=== PATIENT | male | born 1950 | race Caucasian/White ===

== ENCOUNTER 2018-04-23 12:18 | Inpatient (IN) | payer MEDICARE ==
[2018-04-23] MEDS ORDERED: Adenosine 6 MG/2 ML VIAL ONE (12:24)
[2018-04-23] MEDS ORDERED: Metoprolol Tartrate 5 MG/5 ML VIAL ONE (12:58)
[2018-04-23 13:05] LABS: PTT 31.5 SEC (22.9-36.1); Prothrombin Time 13.5 SEC (12.0-14.7)
[2018-04-23 13:06] LABS: ALT (SGPT) 10 U/L (8-55); AST (SGOT) 15 U/L (5-34); Albumin 4.6 g/dL (3.4-4.8); Alkaline Phosphatase 95 U/L (40-150); Anion Gap 16 mmol/L (10-20); BUN (Urea Nitrogen) 12 mg/dL (8.4-25.7); Bilirubin, Total 1.8 mg/dL (0.2-1.2); CK (CPK) 61 U/L (30-200); Calc. Creatinine Clearance 0 mL/min (70-130); Calcium 10.3 mg/dL (7.8-10.44); Carbon Dioxide 27 mmol/L (23-31); Chloride 95 mmol/L (98-107); D-Dimer Test 3.76 *mcg/mL (0.27-0.43); Estimated GFR-MDRD Greater than 90; Globulin 4.1 g/dL (2.4-3.5); Glucose 113 mg/dL (80-115); Magnesium 1.9 mg/dL (1.6-2.6); Potassium 3.7 mmol/L (3.5-5.1); Protein, Total 8.7 g/dL (5.8-8.1); Sodium 134 mmol/L (136-145)
[2018-04-23 13:10] LABS: #Eosinphils 0.1 thou/uL (0.0-0.7); #Lymphocytes 1.3 thou/uL (1.20-3.40); #Neutrophils 7.6 thou/uL (1.40-6.50); %Basophils 0.3 % (0.0-1.0); %Lymphocytes 13.3 % (21.0-51.0); %Monocytes 9.8 % (0.0-10.0); %Neutrophils 75.6 % (42.0-75.0); Hemoglobin 15.3 g/dL (14.0-18.0); Mean Corpuscular HGB CONC 33.9 g/dL (32.0-36.0); Mean Corpuscular Hemoglobin 37.7 pg (27.0-31.0); Platelet Count 182 thou/uL (130-400); RBC Distribution Width 13.7 % (11.5-14.5); Red Blood Cell (RBC) Count 4.05 mill/uL (4.70-6.10)
[2018-04-23] MEDS ORDERED: Calcium Gluc 4.6 MEQ/10 ML (100 MG/ML) ONE (13:50)
--- NOTE | 2018-04-23 13:55 | RAD ---
CHEST 1 VIEW: Date: 04/23/18 HISTORY: Fall at home. Patient was in supraventricular tachycardia per EMS. FINDINGS: Heart size within normal limits for portable technique. There are atherosclerotic changes of the aort a. The lungs are clear of infiltrates. There are no signs of failure. No fracture is identified. IMPRESSION: No acute changes. POS: [facility]
--- NOTE | 2018-04-23 14:15 | RAD ---
AP PELVIS: Date: 04/23/18 HISTORY: Fall at home with left hip pain. FINDINGS: Bones appear demineralized. The pelvic ring is intact. There is a left femoral neck fracture which ap pears to be more of a subcapital fracture. IMPRESSION: Left femoral neck fracture. POS: [facility]
--- NOTE | 2018-04-23 14:15 | RAD ---
LEFT KNEE 2 VIEWS: Date: 04/23/18 HISTORY: Patient fell at home with knee pain. FINDINGS: Bones are demineralized. There are no signs of fracture, dislocation, or joint effusion. IMPRESSION: Negative left knee. POS: [facility]
--- NOTE | 2018-04-23 14:17 | RAD ---
LEFT HIP 2 VIEWS: Date: 04/23/18 HISTORY: Fall at home with hip pain. FINDINGS: There is a left femoral neck fracture. It appears to be more of a subcapital fracture. The bones are demineralized. There are vascular calcifications seen. IMPRESSION: Left femoral neck fracture. POS: [facility]
--- NOTE | 2018-04-23 14:17 | RAD ---
LEFT FEMUR 2 VIEWS: Date: 04/23/18 HISTORY: Fall at home with hip pain. FINDINGS: The bones are demineralized. There is a subcapital fracture of the left femoral neck. There are vascu lar calcifications noted. IMPRESSION: Left femoral neck fracture. POS: [facility]
--- NOTE | 2018-04-23 14:25 | CT ---
CT ANGIO CHEST PERFORMED WITH IV CONTRAST ENHANCEMENT WITH 3D RECONSTRUCTIONS: Date: 04/23/18 HISTORY: Syncope. FINDINGS: There is mild right side pleural effusion with a larger left effusion. There are bibasilar atelectati c lung changes seen. No evidence for any interstitial edema. The thoracic aorta is normal in caliber. There is good pulmonary artery opacification. There is no CT evidence for pulmonary embolus. Visualized liver parenchyma shows no focal findings. Partial visualized hypodensity in the right kidn ey is most likely a cyst. IMPRESSION: 1. No CT evidence for pulmonary embolus. 2. Moderate bilateral pleural effusions, left larger than right, with associated atelectatic changes in the bases. POS: [facility]
[2018-04-23] MEDS ORDERED: Digoxin 0.5 MG/2 ML AMP ONE (14:26)
[2018-04-23 16:03] LABS: Troponin I 0.016 ng/mL (< 0.028)
[2018-04-23] MEDS ORDERED: ISOVUE-370 76%-LOCM 1 ML ONE (16:53)
--- NOTE | 2018-04-23 16:57 | CON ---
DATE OF CONSULTATION: REASON FOR CONSULTATION: Atrial flutter. HISTORY: Mr. Hawkins is a 68-year-old gentleman, who has not been seen around by Cardiology in the past. He recently presented with a fall. He states he tripped over his dog. He broke his left hip. He presented to the emergency room with severe left hip pain. He was found to be in atrial flutter. No previous history of underlying coronary artery disease. He denies chest pain, pressure, syncope, or presyncope. PAST MEDICAL HISTORY: Previous hand surgery. SOCIAL HISTORY: Continues to drink alcohol and tobacco. ALLERGIES: NONE. HOME MEDICATIONS: None. REVIEW OF SYSTEMS: A 10-point review of systems is reviewed and as above, otherwise negative. PHYSICAL EXAMINATION: GENERAL: He does appear disheveled. VITAL SIGNS: Blood pressure 131/70, pulse 150, respirations 20. NEUROLOGIC: The patient is alert and oriented x3 with no focal neurologic deficits. HEENT: Sclerae without icterus. Mouth has moist mucous membranes with normal pallor. NECK: No JVD. Carotid upstroke brisk. No bruits bilaterally. LUNGS: Clear to auscultation with unlabored respirations. BACK: No scoliosis or kyphosis. CARDIAC: Irregularly irregular. ABDOMEN: Soft, nontender, nondistended. No peritoneal signs present. No hepatosplenomegaly. No abnormal striae. EXTREMITIES: 2+ femoral and 2+ dorsalis pedis pulses. No cyanosis, clubbing, or edema. SKIN: No gross abnormalities. PERTINENT LABORATORY DATA: Hemoglobin 15.3, hematocrit 45, platelet count of 182. Creatinine 0.68. BNP of 484. IMPRESSION: 1. Atrial flutter. 2. Recent hip fracture. RECOMMENDATIONS: From a CV standpoint, we will try and rate control Mr. Hawkins. We will give additional digoxin. He is currently on 7.5 mg of IV Cardizem per hour. May need to increase his Cardizem. Ultimately, he may require ablation and/or cardioversion. We will consult with EP. We will keep him n.p.o. after midnight. Job ID: [id number]
[2018-04-23] MEDS: Sodium Chloride 0.9% 1,000 ML IV SCH (17:29)
[2018-04-23] MEDS: Lorazepam 1 MG TAB PO SCH (18:35)
--- NOTE | 2018-04-23 18:47 | HP ---
HISTORY OF PRESENT ILLNESS: Mr. Hawkins is a 68-year-old man. He came to this facility earlier today with complaint of left hip pain, which started about 3 days ago after he fell. He was evaluated and found to have a subcapital left hip fracture. He is being admitted for management. He was also found to have atrial fibrillation with rapid ventricular response. He denies any associated shortness of breath. Denies dizziness. Denies lightheadedness. PAST MEDICAL HISTORY: Unremarkable except for skin cancer excision. PAST SURGICAL HISTORY: No prior history of major surgery. ALLERGIES: HE DOES NOT HAVE ANY KNOWN ALLERGY. SOCIAL HISTORY: He is an active smoker. He appeared to have a history of alcohol abuse. FAMILY HISTORY: His family history was reviewed and is noncontributory. MEDICATIONS: At home, he was not on any medications. REVIEW OF SYSTEMS: CONSTITUTIONAL: He denies any fevers. He denies any weakness. HEENT: No headache. No ocular pain. No sore throat. No rhinorrhea. No earache. No epistaxis. NECK: No neck pain. No neck stiffness. CARDIOVASCULAR: No shortness of breath. No chest pain. PULMONARY: No coughing. GASTROINTESTINAL: No nausea. No vomiting. No diarrhea. No abdominal pain. GENITOURINARY: No dysuria. No hematuria. HEMATOLOGIC: No abnormal bleeding. No ecchymosis. LYMPHATIC: No palpable lymphadenopathy. No painful lymphadenopathy. SKIN: No rash. No itching. ALLERGY: No hay fever. NEUROLOGIC: No seizure. PSYCHIATRIC: No anxiety. No depression. ENDOCRINOLOGIC: No heat or cold intolerance. No polyuria, polydipsia, or polyphagia. MUSCULOSKELETAL: Some right hip pain. No history of arthritis. PHYSICAL EXAMINATION: GENERAL: At the current time, he is alert, responsive, cooperative, in no acute distress. VITAL SIGNS: His latest vital signs show a pulse rate of 125, blood pressure 109/77, respiratory rate of 14, and he is afebrile. HEENT: His head is normocephalic and atraumatic. Both his pupils are equal and reactive. Ears and nose normal. Oral mucosa is moist. Pharyngeal area is clear. NECK: Supple. There is no distention of the jugular vein. No lymphadenopathy felt. Thyroid gland not palpable. There is no carotid bruit. CHEST: Symmetrical, irregular, S1 and S2. LUNGS: Clear. ABDOMEN: Soft. Bowel sounds heard. We could not appreciate any organomegaly. LIMBS: He has +1 edema of the lower extremities and he has limitation in view of range of motion of the left hip. NEUROLOGIC: Otherwise, he moves all extremities. LABORATORY DATA: His CBC done earlier showed a WBC of 10, hemoglobin of 15.3, hematocrit of 45, MCV of 111, platelet of 182. PT is 13.5, PTT is 31.5. D-dimer was noticed to be elevated at 3.76. CT angiogram is negative for PE. Chemistry and lytes show sodium of 134, potassium 3.7, chloride 95, CO2 of 27, BUN 12, creatinine 0.68, glucose 113, calcium 13.3, magnesium 1.9, total bilirubin 1.8, AST 15, ALT 10, alkaline phosphatase 95. Troponin was 0.023. BNP was elevated at 484. Total protein is 8.7, albumin 4.6. TSH is 2.2415, which is normal. Left femoral x-ray was reported to show a sub left femoral neck fracture. Chest x-ray was reported to show no acute changes. ASSESSMENT: This is a 68-year-old man with no significant past medical history except for skin cancer excision, who was admitted with left hip fracture, which he sustained after he fell. He was also noticed to be in atrial fibrillation with rapid ventricular response. He is currently on Cardizem drip. His pulse rate was still elevated on Cardizem drip earlier and his blood pressure was on the low side. We did give him one dose of digoxin 0.25 IV. Cardiology consult was called. Troponins are in progress, assessed level so far normal. The patient will be admitted to [facility]. Cardiology consult and Orthopedic Surgery consult were called. Further evaluation and management will depend on the course of his hospitalization and his response to therapy. ADDENDUM: I had a long discussion with the patient and his daughter regarding code status at this time. They said that they need more time to make a definite decision. So currently, the patient is full code, full resuscitation. Job ID: [id number]
[2018-04-23 19:02] LABS: Troponin I 0.021 ng/mL (< 0.028)
--- NOTE | 2018-04-23 19:19 | PRG ---
DATE OF SERVICE: HISTORY OF PRESENT ILLNESS: He is an alcoholic man, who fell a few days ago and probably suffered a nondisplaced femoral neck fracture at that time and then is basically laid around the house. Passed out again today and presents via EMS with supraventricular tachycardia as well as a broken hip. Past medical history is difficult fared out. He really does not go the doctor. However, he is an alcoholic. He smokes a pack a day. He does have a daughter, who gives him some support. He does not eat very much according to his own statement. PHYSICAL EXAMINATION: GENERAL: Shows a thin man, who is disheveled appearing. He is alert and oriented. EXTREMITIES: His left hip shortened, externally rotated. I am not able to palpate any pulses distally is pain with rotation of the hip. RADIOGRAPHS: Show a femoral neck and head fracture, which is only mildly displaced. LABORATORY DATA: Labs also important show an increased serum protein. His calcium is borderline high at 10.3 and normal is 10.4. PLAN: So, I am going to do a protein electrophoresis just to make sure there is no metastatic or myeloma type situation in hip. I discussed total hip arthroplasty risks and benefits and he understands and like to proceed with surgery. Job ID: [id number]
[2018-04-23] MEDS ORDERED: Digoxin 0.5 MG/2 ML AMP SLOW IVP SCH (20:45)
[2018-04-24] MEDS: Atorvastatin Calcium 40 MG TAB PO SCH (00:06)
[2018-04-24] MEDS: Morphine 4 MG/ML VIAL SLOW IVP PRN ×2 (01:05→18:08)
[2018-04-24] MEDS: Lorazepam 1 MG TAB PO SCH ×4 (01:06→17:32)
[2018-04-24] MEDS: Diltiazem 125 MG in Sodium Chloride 0.9% 100 ML IVPB SCH ×3 (01:07→21:05)
[2018-04-24] MEDS: Sodium Chloride 0.9% 1,000 ML IV SCH ×3 (02:28→18:02)
[2018-04-24 04:57] LABS: #Eosinphils 0.2 thou/uL (0.0-0.7); #Lymphocytes 1.4 thou/uL (1.20-3.40); #Monocytes 0.9 thou/uL (0.11-0.59); #Neutrophils 6.3 thou/uL (1.40-6.50); %Basophils 0.1 % (0.0-1.0); %Eosinophils 2.1 % (0.0-10.0); %Lymphocytes 15.7 % (21.0-51.0); %Monocytes 10.2 % (0.0-10.0); %Neutrophils 71.8 % (42.0-75.0); Hemoglobin 12.7 g/dL (14.0-18.0); Mean Corpuscular HGB CONC 33.3 g/dL (32.0-36.0); Mean Corpuscular Hemoglobin 37.5 pg (27.0-31.0); Mean Platelet Volume 9.2 fL (7.4-10.4); Platelet Count 161 thou/uL (130-400); RBC Distribution Width 13.9 % (11.5-14.5); Red Blood Cell (RBC) Count 3.39 mill/uL (4.70-6.10); White Blood Cell (WBC) Count 8.8 thou/uL (4.8-10.8)
[2018-04-24 05:08] LABS: Cardiac Risk 3.3 (Less than 4.5)
[2018-04-24] MEDS ORDERED: CEFAZOLIN/Water 2 GM/20 ML SYRINGE SLOW IVP SCH (07:15)
[2018-04-24] MEDS ORDERED: CEFAZOLIN 2 GM in Premix Bag 1 BAG IVPB SCH (07:30)
--- NOTE | 2018-04-24 10:05 | CON ---
DATE OF CONSULTATION: HISTORY OF PRESENT ILLNESS: Ulises Hawkins is a 68-year-old gentleman, who has no primary care physician, is from [place], [place], lives with a daughter, who smokes a pack a day. Has 5 to 6 Michele Islas every day. Has a minimal level of activity, sustained a fall almost 48 hours ago and refused to come to the hospital until yesterday. When he comes in, he was found to have fractured hip. He has been seen by Orthopedic Surgery. He then was found to have SVT, atrial flutter. He has been seen by flow floor attendant, Pulmonary Critical Care seen him while in the MICU. This morning, he is lying in bed. Denies any pain. Denies difficulty breathing. Denies any chest pain. Denies any cough. PAST MEDICAL HISTORY: Pertinent for no diabetes, no hypertension. PAST SURGICAL HISTORY: Right hand surgery. CHRONIC MEDICATION: None. He is on a Cardizem drip. Antibiotic, Ancef. SOCIAL HISTORY: He is a national park ranger one time. REVIEW OF SYSTEMS: Otherwise, ten-point negative. PHYSICAL EXAMINATION: VITAL SIGNS: His sats are 98, pulse is 140, irregular, blood pressure 94/77, respiratory rate 18. CHEST: Decreased breath sounds. No wheezing. CARDIAC: Normal S1, S2. No gallops or masses. LABORATORY DATA: White count 8000, H and H are 12 and 38, platelet count 161. His lytes are normal. His BNP is 484. Thyroid function is normal. Renal function is normal. Left femoral neck fracture seen on his x-ray. He had a CT thorax, chest done. No evidence of PE. There was pleural effusion seen on the CT, which on the chest x-ray was really not that apparent. IMPRESSION: 1. Status post fractured right hip. 2. Supraventricular tachycardia. 3. 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 4. Left pleural effusion not visible much on the chest x-ray, probably secondary to congestive heart failure. 5. Alcohol and tobacco abuse. PLAN: Pulmonary will follow while in the MICU. Input as per Cardiology. Magnesium phos is being ordered. IV magnesium will be given. Consultation note, 70 minutes, 50% direct patient care. Job ID: [id number]
[2018-04-24] MEDS: Famotidine/PF 20 mg/2ml Vial SLOW IVP SCH (10:11)
[2018-04-24 10:59] LABS: Magnesium 1.6 mg/dL (1.6-2.6)
[2018-04-24] MEDS ORDERED: Digoxin 0.5 MG/2 ML AMP SLOW IVP SCH ×4 (11:15→23:59)
--- NOTE | 2018-04-24 11:28 | PDOC.PN ---
- Subjective Encounter Start Date: 04/24/18 Encounter Start Time: 11:30 Subjective: Patient still with uncontrolled heart rate. Shortness of breath ok currentl -: No chest pain at this time. - Objective Resuscitation Status - Order Detail: 04/23/18 18:17 Resuscitation Status Routine Resuscitation Status: DNAR: NO Resuscitation Discussed with: DISCUSSED WITH PATIENT WHO IS ALERT MAR Reviewed: Yes Vital Signs & Weight: Vital Signs (12 hours) Temp BP Pulse Ox 04/24/18 11:06 98.0 F 04/24/18 08:00 94/77 96 04/24/18 07:17 98.2 F 04/24/18 03:31 98.3 F 04/23/18 23:47 99.0 F Weight Weight 143 lb 8.335 oz Most Recent Monitor Data Heart Rate from ECG 159 NIBP 126/88 NIBP BP-Mean 100 Respiration from ECG 23 SpO2 96 I&O: 04/23/18 04/24/18 04/25/18 06:59 06:59 06:59 Intake Total 3182.5 Output Total 1450 Balance 1732.5 Result Diagrams: 04/24/18 04:20 04/23/18 12:25 EKG Reviewed by me: Yes (tele monitor with sawtooth baseline, variable block, 150bpm currently) Phys Exam - Physical Examination Constitutional: NAD HEENT: moist MMs Respiratory: no wheezing, no rales, no rhonchi very tachycardic, a little irregular Dx/Plan (1) Sustained SVT Code(s): I47.1 - SUPRAVENTRICULAR TACHYCARDIA Status: Acute Comment: EP consult, plan for cardioversion (2) Hip fracture, right Code(s): S72.001A - FRACTURE OF UNSP PART OF NECK OF RIGHT FEMUR, INIT Status : Acute Comment: Dr. Parmar consulted (3) CHF (congestive heart failure) Code(s): I50.9 - HEART FAILURE, UNSPECIFIED Status: Acute Qualifiers: Heart failure type: unspecified Comment: ECHO pending, left pleural effusion, elevated BNP, at risk for alcohol cardiomyopathy - Plan cont current plan of care, DVT proph w/SCDs * . - Discharge Day Encounter end time: 11:40
[2018-04-24] MEDS ORDERED: Metoprolol Tartrate 5 MG/5 ML VIAL IVP SCH (21:00)
[2018-04-25] MEDS: Morphine 4 MG/ML VIAL SLOW IVP PRN ×4 (00:18→20:54)
[2018-04-25] MEDS: Lorazepam 1 MG TAB PO SCH ×5 (00:18→23:59)
--- NOTE | 2018-04-25 01:10 | CON ---
DATE OF CONSULTATION: 04/24/2018 HISTORY OF PRESENT ILLNESS: I am seeing Mr. Hawkins at our [facility] ICU as Electrophysiology java developer consultant. His problems are: 1. Atrial flutter with rapid ventricular rates, newly found. 2. Status post trip and fall and left hip fracture requiring surgery. 3. No prior history of coronary artery disease or cardiac issues or arrhythmias. 4. History of EtOH abuse and chronic smoking. ALLERGIES: NONE NOTED. MEDICATIONS: At home included none. SUBJECTIVE: Mr. Hawkins was admitted on the 3rd with symptoms of hip pain after a fall over his dog. He was found to have a left hip fracture and Orthopedic Surgery planned hip repair, but due to his atrial flutter and rapid rates, his procedure was canceled. He continues to have rapid rates requiring a high-dose diltiazem, which on the other hand turns him somewhat hypotensive in the 90s systolic. Still the heart rates are rather rapid. He has significant pain, not complaining any other symptoms. He requires narcotics. He denies PND, orthopnea. No lower extremity edema. No fever, chills, or cough. No bleeding tendency noted. He never had history of esophageal bleed. No neurological deficits currently and rest of 12-point system are otherwise unremarkable. PAST MEDICAL HISTORY: As above. SOCIAL HISTORY: The patient denies drug abuse. He is an active smoker and has significant amount of alcohol use. FAMILY HISTORY: Noncontributory. PHYSICAL EXAMINATION: VITAL SIGNS: Blood pressure is 91/71, heart rate 119, respirations 17, temperature 98.1 degrees Fahrenheit. GENERAL: Alert, oriented, somewhat thin-appearing elderly man, in no apparent distress. NECK: Supple. Jugular veins are not distended. CHEST: Coarse without crackles. HEART: Sounds are irregularly irregular. S1 and S2 are variable. No murmur or gallop. ABDOMEN: Benign, bowel sounds positive. EXTREMITIES: Lower extremities without edema, clubbing, or cyanosis. DATABASE: The EKG is reviewed revealing a typically-appearing atrial flutter with 2:1 AV conduction at baseline. Subsequent EKGs reveals typical isthmus dependent appearing flutter morphology during adenosine administration. LABORATORY DATA: White cell count is 8.8, hemoglobin 12.7, platelet count is 161. INR is 1. Sodium 135, potassium 3.7, BUN is 12, creatinine 0.68. AST and ALT are 15 and 10. BNP was 484 at presentation. Troponins are 0.016 and 0.021 consecutively. TSH 2.24. IMAGING STUDIES: Chest x-ray yesterday reveals no acute changes. Hip x-ray shows left femoral neck fracture. The chest CT reveals no evidence of pulmonary embolus or bilateral pleural effusions. ASSESSMENT AND PLAN: Mr. Hawkins is a pleasant 68-year-old male, with history of alcohol abuse and smoking, but otherwise no major cardiac history, who has presented after a slip, fall, and hip fracture and noted to be in atrial flutter with rapid rate. His rates are extremely rapid making him hypertensive with diltiazem and the surgery has been canceled. I was consulted for further arrhythmia management. We discussed the mechanism of atrial flutter with the family, who was present including his daughter, who is helping to make his decisions. They understand the potential treatment options including continued rate control, however it is somewhat difficult with the current hypertension, possibly adding digoxin could be made, although he already received IV digoxin before. We also discussed option for a MEY-guided cardioversion or ablation. At this point, it would be reasonable to consider a MEY-guided ablation procedure, which would more likely control his recurrences and rates than just a simple cardioversion. On the other hand, I detailed the potential risks including strokes, hence he will not need a MEY to minimize the chance of bleeding at the insertion site as well as in the pericardial space are present. There is a chance for recurrence and also chance of atrial fibrillation also could occur afterwards. We detailed the options for medical therapy, where again his blood pressure is borderline, has history of alcohol abuse and likely has chronic obstructive pulmonary disease antiarrhtyhmic medications are less than ideal solutions for him. Anticoagulation is a consideration although his CHADS-VASc score is only 1 and he is not on anticoagulation medications so far. We will check his echo regarding his LVEF. We did discuss MEY and the chance for esophageal perforation or laceration of potentially present esophageal varices. We will proceed with the above possibly early as tomorrow. Job ID: [id number] [facility] SYSTEM[facility]y
[2018-04-25] MEDS: Atorvastatin Calcium 40 MG TAB PO SCH ×2 (02:05→20:54)
[2018-04-25] MEDS: Sodium Chloride 0.9% 1,000 ML IV SCH ×3 (04:17→20:55)
[2018-04-25] MEDS: Diltiazem 125 MG in Sodium Chloride 0.9% 100 ML IVPB SCH (08:01)
--- NOTE | 2018-04-25 09:02 | PRG ---
DATE OF SERVICE: 04/25/2018 SUBJECTIVE: This morning, the patient is awake and responsive. Still having flutter at 140. He is scheduled to go down for a MEY today. OBJECTIVE: VITAL SIGNS: Blood pressure 130\72 pulse 145, sats are 99%, respiratory rate 18. GENERAL: Appears somewhat encephalopathic. CHEST: Decreased breath sounds. No wheezing. CARDIAC: SVT. ABDOMEN: Soft. IMPRESSION: 1. Flutter. 2. Fractured femur. 3. Encephalopathy. PLAN: Continue cardiac care. Pulmonary will follow while in the MICU. Surgery later for his fractured hip. Job ID: [id number] [facility]
[2018-04-25] MEDS: Famotidine/PF 20 mg/2ml Vial SLOW IVP SCH (09:30)
[2018-04-25] MEDS: Multivitamin W/ Minerals 1 TAB PO SCH (09:30)
--- NOTE | 2018-04-25 09:58 | PDOC.PN ---
- Subjective Encounter Start Date: 04/25/18 Encounter Start Time: 10:50 Subjective: Patient without specific complaints this morning. Awaiting MEY with -: ablation. No Chest pain. No SOB at rest on O2. - Objective Resuscitation Status - Order Detail: 04/23/18 18:17 Resuscitation Status Routine Resuscitation Status: DNAR: NO Resuscitation Discussed with: DISCUSSED WITH PATIENT WHO IS ALERT MAR Reviewed: Yes Vital Signs & Weight: Vital Signs (12 hours) Temp Pulse BP 04/25/18 08:00 120/80 04/25/18 07:21 98.0 F 04/25/18 04:12 98.1 F 04/25/18 02:11 158 H 04/25/18 00:44 158 H 04/25/18 00:06 98.7 F Weight Weight 143 lb 8.335 oz Most Recent Monitor Data Heart Rate from ECG 138 NIBP 108/76 NIBP BP-Mean 86 Respiration from ECG 14 SpO2 93 I&O: 04/24/18 04/25/18 04/26/18 06:59 06:59 06:59 Intake Total 3182.5 3157 Output Total 1450 Balance 1732.5 3157 Result Diagrams: 04/24/18 04:20 04/23/18 12:25 Phys Exam - Physical Examination Constitutional: NAD HEENT: moist MMs Respiratory: no wheezing, no rales, no rhonchi very tachycardic, regular, BP maintained Gastrointestinal: soft, positive bowel sounds Neurological: non-focal, moves all 4 limbs Psychiatric: normal affect, A&O x 3 Dx/Plan (1) Sustained SVT Code(s): I47.1 - SUPRAVENTRICULAR TACHYCARDIA Status: Acute Comment: Dr. Dhillon following, plan for MEY and ablation today (2) Hip fracture, right Code(s): S72.001A - FRACTURE OF UNSP PART OF NECK OF RIGHT FEMUR, INIT Status : Acute Comment: Dr. Parmar consulted, plan for surgery after stable from heart standpoint (3) CHF (congestive heart failure) Code(s): I50.9 - HEART FAILURE, UNSPECIFIED Status: Acute Qualifiers: Heart failure type: unspecified Comment: ECHO pending, left pleural effusion, elevated BNP, at risk for alcohol cardiomyopathy - Plan cont current plan of care, DVT proph w/SCDs * . - Discharge Day Encounter end time: 11:00
[2018-04-25] MEDS ORDERED: CEFAZOLIN/Water 2 GM/20 ML SYRINGE SLOW IVP SCH (15:15)
[2018-04-25] MEDS ORDERED: CEFAZOLIN 2 GM in Premix Bag 1 BAG IVPB SCH (16:00)
[2018-04-25] MEDS ORDERED: PROPOFOL 200 MG/20 ML VIAL ONE (16:45)
[2018-04-25] MEDS ORDERED: Lidocaine 1% PF 5 ML VIAL ONE (16:45)
[2018-04-25] MEDS ORDERED: Propofol 1,000 MG/100 ML VIAL IV ONE (16:59)
[2018-04-25] MEDS ORDERED: Fentanyl 250 MCG/5 ML VIAL ONE (17:07)
[2018-04-25] MEDS ORDERED: Heparin 10,000 UNITS/1 ML VIAL ONE (17:57)
[2018-04-25] MEDS ORDERED: DOPamine 400 MG/D5W 250 ML 250 ML ONE (18:27)
--- NOTE | 2018-04-25 22:12 | ECHO ---
REQUESTING PHYSICIAN: Robin Moya M.D., Dr. Jimenes REASON FOR PROCEDURE: The patient is a 68-year-old male who has history of ETOH abuse, presents with trip, fall, and left hip fracture. He was found to be in atrial flutter with rapid rate. This was difficult to control and hence surgery is postponed until further management is performed. The patient is not on anticoagulation. The ALEX -VASc score is low and he has likely liver disease. PROCEDURE: The patient received propofol by Anesthesia specialist. After adequate level of sedation achieved, a standard transesophageal echocardiogram probe was passed into the esophagus without difficulty. Patient tolerated the procedure well, no complications noted. RESULTS: Left atrium is moderately enlarged about 5.5 cm in horizontal diameter. The left atrial appendage is well visualized and contains no clots. The left atrial appendage velocities up to 50 cm per second. Four out of four pulmonary veins were seen. There is at least moderate eccentric mitral regurgitation seen. There is no flow reversal noted on the right sided pulmonary veins. Some Coanda effect is noted. Aortic valve is moderately sclerotic, has three leaflets. No regurgitation is seen. The tricuspid valve has mild to moderate regurgitation. The left ventricular systolic function is preserved. LVEF about 65%. There is apical hypertrophy to a moderate degree noted. Right sided chamber is nondilated. Pericardial space with moderate effusion. No evidence of chamber collapse. Mitral and tricuspid inflow with minor repiratory variation - not significant to suggest tamponade. Large pleural effusion also noted. The visualized portion of ascending and descending aorta without mobile atheroma although significant amount adherent atheroma is noted in the arch area. There is no dissection visualized. CONCLUSION: 1. No intracardiac clots. 2. Moderate left atrial enlargement. 3. Normal LV systolic function. 4. Moderate more apical appearing hypertrophy. 5. Moderate to severe aortic stenosis. 6. Moderate mitral regurgitation. 7. Moderate pericardial effusion without evidence of tamponade. 8. Moderate to severe pleural effusion. PLAN: Proceed with cardioversion procedure. MTDD
--- NOTE | 2018-04-26 01:42 | OP ---
DATE OF PROCEDURE: 04/25/2018 PROCEDURE PERFORMED: Electrophysiology study and radiofrequency ablation. REFERRING PHYSICIAN: Dr. Moya, REASON FOR PROCEDURE: Mr. Hawkins is a 68-year-old male with prior history of EtOH abuse, who presented with sudden atrial flutter after a slip and fall, and left hip fracture. His surgery was postponed due to the rapid rates. He underwent a MEY prior to this procedure demonstrating no intracardiac clots, but moderate , moderate MR, moderate LVH, apical hypertrophy, and also moderate left atrial enlargement as well as a moderate baseline pericardial effusion was seen even prior to the ablation without evidence of tamponade. DESCRIPTION OF PROCEDURE: The patient received propofol by anesthesia specialist. After adequate level of sedation was achieved, the right femoral venous area was prepped, draped, and anesthetized using subcutaneous lidocaine. Under ultrasound guidance, the right femoral vein was cannulated and two 8-[place] Citizen short sheath was introduced. Through this, a decapolar CS catheter and a ThermoCool SFST ablation catheter was advanced through the right atrium. A 3D map of the right atrium, His bundle, and CS were obtained at baseline and a decapolar catheter was advanced to the right ventricle, His bundle, right atrium, and eventually CS positions. Pacing, mapping, recording was performed at each location. The following findings were noted. The baseline rhythm was atrial flutter with cycle length of 200 milliseconds. The activation pattern of the flutter in the CS catheter was suggestive of right atrial origin. The atrial flutter converted into atrial fibrillation during catheter manipulation. Due to the typical appearance of atrial flutter on EKG as well as on intracardiac electrogram, the decision was made to performed a cavotricuspid isthmus ablation. With the ThermoCool SFST catheter, a total of 3lesions with total duration of 2 minutes and 36 seconds were delivered at 40 schaefer with average impedance of 98 ohms. The cavotricuspid isthmus ablation eliminated electrocardiograms at the ablation line. Following this, cardioversion was performed. Pacing maneuvers were performed at this point with the following findings. The rhythm at this point was sinus rhythm, the sinus node recovery time was 1364 milliseconds. The HV interval did not change at 55 milliseconds, AH 125 milliseconds, QRS 91 milliseconds. The AV Wenckebach cycle length was 320 milliseconds. The AV ziyad ERP was 600/240 milliseconds. During proximal CS pacing, the transisthmus times were measured and we found evidence of isthmus block based on the longest transisthmus time being adjacent to the ablation line. The next transisthmus time was up to 160 milliseconds. Following that, dopamine was administered. A burst atrial pacing did not induce atrial flutter or fibrillation. The cavotricuspid isthmus blockwas demonstrated during proximal CS pacing again and the reconnections re-ablated. CONCLUSION: 1. Successful cavotricuspid isthmus ablation for typical atrial flutter. 2. The patient has a tendency for persisting atrial fibrillation, which was cardioverted. 3. Abnormal sinus ziyad recovery time possibly due to recent diltiazem use. 4. Normal AV ziyad function. No evidence of dual pathway is present. 5. No re-inducible atrial arrhythmia at the end of the case. PLAN: Routine post-ablation care. Consider intermediate-term anticoagulation for a month after surgical procedure is completed. Job ID: [id number] [facility]
[2018-04-26] MEDS: Morphine 4 MG/ML VIAL SLOW IVP PRN ×2 (04:51→11:55)
[2018-04-26] MEDS: Sodium Chloride 0.9% 1,000 ML IV SCH (04:54)
[2018-04-26] MEDS: Lorazepam 1 MG TAB PO SCH (06:13)
--- NOTE | 2018-04-26 08:07 | PDOC.PN ---
- Subjective Encounter Start Date: 04/26/18 Encounter Start Time: 10:40 Subjective: Patient got ablation, out of Aflutter but continued sinus tach in 130s. No -: complaints currently, sleepy. Getting ativan as needed for any withdrawl -: symptoms but not shakey at all. Pain from hip controlled. - Objective Resuscitation Status - Order Detail: 04/23/18 18:17 Resuscitation Status Routine Resuscitation Status: DNAR: NO Resuscitation Discussed with: DISCUSSED WITH PATIENT WHO IS ALERT MAR Reviewed: Yes Vital Signs & Weight: Vital Signs (12 hours) Temp BP 04/26/18 07:08 99.7 F H 04/26/18 04:12 98.1 F 04/26/18 00:03 98.6 F 04/25/18 20:20 121/81 Weight Weight 143 lb 8.335 oz Most Recent Monitor Data Heart Rate from ECG 124 NIBP 131/83 NIBP BP-Mean 99 Respiration from ECG 21 SpO2 97 I&O: 04/25/18 04/26/18 04/27/18 06:59 06:59 06:59 Intake Total 3157 2552.5 Balance 3157 2552.5 Result Diagrams: 04/24/18 04:20 04/23/18 12:25 Phys Exam - Physical Examination Constitutional: NAD HEENT: moist MMs Respiratory: no wheezing, no rales, no rhonchi Cardiovascular: RRR tachy Gastrointestinal: soft, positive bowel sounds Neurological: non-focal Deviation from normal: Sleepy, arousable Dx/Plan (1) Sustained SVT Code(s): I47.1 - SUPRAVENTRICULAR TACHYCARDIA Status: Resolved Comment: Dr. Dhillon performed ablation on 04/25/2018, tendency to afib postop (2) Hip fracture, right Code(s): S72.001A - FRACTURE OF UNSP PART OF NECK OF RIGHT FEMUR, INIT Status : Acute Comment: Dr. Parmar consulted, plan for surgery after stable from heart standpoint (3) CHF (congestive heart failure) Code(s): I50.9 - HEART FAILURE, UNSPECIFIED Status: Acute Qualifiers: Heart failure type: unspecified Comment: ECHO with normal EF, likely diastolic dysfunction, severe (4) Tobacco abuse Code(s): Z72.0 - TOBACCO USE Status: Chronic (5) Alcohol abuse Code(s): F10.10 - ALCOHOL ABUSE, UNCOMPLICATED Status: Chronic Comment: clinically doesn't appear to be in withdrawl, getting ativan and not shakey, sinus tach more likely related to hip fracture and pain. (6) Aortic stenosis, severe Code(s): I35.0 - NONRHEUMATIC AORTIC (VALVE) STENOSIS Status: Acute Comment : higher risk with surgery, but not doing surgery very high risk, spoke with Dr. Moya and he recommended trying to control HR with metoprolol, can consider valve replacement after hip repair and rehab - Plan cont current plan of care, PT/OT, DVT proph w/SCDs * . - Discharge Day Encounter end time: 10:50
[2018-04-26] MEDS: Multivitamin W/ Minerals 1 TAB PO SCH (08:40)
[2018-04-26] MEDS ORDERED: Lorazepam 1 MG TAB PO PRN (08:40)
[2018-04-26] MEDS: Famotidine/PF 20 mg/2ml Vial SLOW IVP SCH (08:40)
--- NOTE | 2018-04-26 08:51 | PRG ---
DATE OF SERVICE: 04/26/2018 SUBJECTIVE: This morning, he is awake, responsive. Still appears to be encephalopathic. OBJECTIVE: VITAL SIGNS: Temperature 99, saturations 90% on room air, blood pressure , respiratory rate 18. CHEST: Decreased breath sounds. No wheezing. CARDIAC: Sinus tach. ABDOMEN: Soft without any masses. IMPRESSION: 1. Status post atrial flutter ablation. 2. Fractured hip. 3. Congestive heart failure. 4. Chronic obstructive pulmonary disease. PLAN: The patient is scheduled to have surgery on his hip. He is on scheduled Ativan, which I am going to make it p.r.n. We will follow while in the MICU. Job ID: [id number]
--- NOTE | 2018-04-26 10:35 | EKG ---
Test Reason : Blood Pressure : / mmHG Vent. Rate : 124 BPM Atrial Rate : 124 BPM P-R Int : 134 ms QRS Dur : 066 ms QT Int : 308 ms P-R-T Axes : 057 046 -67 degrees QTc Int : 442 ms Sinus tachycardia Nonspecific ST and T wave abnormality Abnormal ECG When compared with ECG of 23-APR-2018 12:37, (Unconfirmed) Sinus rhythm has replaced Atrial flutter QRS duration has decreased Criteria for Septal infarct are no longer Present Non-specific change in ST segment in Inferior leads Nonspecific T wave abnormality has replaced inverted T waves in Inferior leads Confirmed by DR. Carlitos PAN ([id number]) on 04/26/2018 10:35:46 AM Referred By: MAYKEL Confirmed By:DR. Carlitos PAN
[2018-04-26] MEDS ORDERED: Metoprolol Tartrate 5 MG/5 ML VIAL IVP SCH (11:00)
[2018-04-26] MEDS: Metoprolol Tartrate 25 MG TAB PO SCH ×3 (11:45→20:14)
[2018-04-26] MEDS ORDERED: Lidocaine 1% PF 5 ML VIAL ONE (11:55)
[2018-04-26] MEDS ORDERED: Glycopyrrolate 0.2 MG/ML 5 ML SYRINGE ONE (11:55)
[2018-04-26] MEDS ORDERED: Rocuronium Bromide 10 MG/ML (10ML VIAL) ONE (11:55)
[2018-04-26] MEDS ORDERED: Succinylcholine Chloride 20 MG/ML 10 ml SYRINGE FS ONE (11:55)
[2018-04-26] MEDS ORDERED: PHENYLEPHRINE-NS 100 MCG/ML 10 ML SYRINGE ONE ×2 (11:55→12:48)
[2018-04-26] MEDS ORDERED: Metoprolol Tartrate 25 MG TAB PO SCH ×2 (12:00→21:00)
[2018-04-26] MEDS ORDERED: Fentanyl 100 MCG/2 ML VIAL ONE ×2 (12:21→14:22)
[2018-04-26] MEDS ORDERED: Lidocaine 2% Jelly 5 ML TUBE ONE (12:21)
[2018-04-26] MEDS ORDERED: Phenylephrine HCL 10 MG/ML VIAL ONE (12:48)
--- NOTE | 2018-04-26 14:00 | PRG ---
DATE OF SERVICE: 04/26/2018 SUBJECTIVE: Mr. Hawkins seems to be doing fair, has some mild anxiety possibly due to DTs, discomfort in the left hip. The right groin catheterization site is unremarkable. He remains in sinus rhythm, but his heart rates are increasing possibly due to the above. No PND or orthopnea. No stroke-like symptoms. No neurological deficits. REVIEW OF SYSTEMS: Rest of 12-point system is otherwise unremarkable. OBJECTIVE: VITAL SIGNS: Blood pressure is 164/88, heart rate 113, respirations are 18, temperature 100.5 degrees Fahrenheit. GENERAL: The patient is alert and oriented, but sedated man, in no apparent distress. NECK: Supple. Jugular veins are not distended. CHEST: Coarse without crackles. HEART: Sounds are regular to rate and rhythm, sounds like tachycardic. 1/6 systolic ejection murmur is heard at the aortic area. ABDOMEN: Benign. Bowel sounds positive. EXTREMITIES: Lower extremity with left hip fracture. The right groin catheterization site is without reaction. No cyanosis. No clubbing is noted. DATABASE: EKG reveals normal atrial flutter with sinus tachycardia increasing throughout the day. LABORATORY DATA: Hemoglobin is 12.7, white count is 8.8, platelet count is 161. ASSESSMENT AND PLAN: Mr. Hawkins is a 68-year-old man, who has a past history of alcohol abuse, presented with trip and fall and left hip fracture, was found to be in atrial flutter with rapid rates are difficult to manage. He underwent a MEY, has no anticoagulation prior and demonstrated no intracardiac clots. On the other hand, he had echocardiogram as well. He has severe aortic stenosis, also moderate MR and also had a moderate pericardial effusion. This finding was preceding the ablation procedure. He underwent cavotricuspid isthmus ablation without difficulty yesterday and maintained sinus rhythm, albeit during the ablation, we induced atrial fibrillation as well, which required cardioversion. For now, we will continue monitoring for recurrence and atrial arrhythmias. He will likely benefit from anticoagulation after his surgery which is tentatively planned today. Dr. Moya will be following regarding his valvular heart disease including [id number] as noted on both echocardiograms. His tachycardia is likely related to noncardiac causes, possibly DT, anxiety, and pain increases likely to be responsible for that. If hypertension occurs, would consider rechecking his pericardial effusion, which was significant at least moderate even prior to the ablation procedure. Job ID: [id number]
[2018-04-26] MEDS ORDERED: Promethazine HCl 25 MG/ML VIAL IM/IV PRN (14:20)
[2018-04-26] MEDS ORDERED: Ondansetron HCl/PF 4 MG/2 ML Vial IVP PRN (14:20)
[2018-04-26] MEDS ORDERED: traMADol HCl 50 MG TAB PO PRN (14:48)
[2018-04-26] MEDS ORDERED: Fentanyl 100 MCG/2 ML VIAL SLOW IVP PRN (14:48)
[2018-04-26] MEDS ORDERED: CEFAZOLIN/Water 2 GM/20 ML SYRINGE SLOW IVP SCH (14:48)
[2018-04-26] MEDS ORDERED: Ketorolac Tromethamine 30 MG/ML VIAL IVP PRN (14:48)
[2018-04-26] MEDS ORDERED: Non-Formulary Medication 1 EACH PO PRN (15:02)
[2018-04-26 15:29] LABS: Albumin 3.1 g/dL (2.9-4.4); Alpha 1 0.3 g/dL (0.0-0.4); Alpha 2 0.7 g/dL (0.4-1.0); Beta 1.1 g/dL (0.7-1.3); Gamma 1.2 g/dL (0.4-1.8); Globulin, Total 3.2 g/dL (2.2-3.9); M-Spike Not Observed g/dL (Not Observed)
--- NOTE | 2018-04-26 15:39 | RAD ---
LEFT HIP TWO VIEWS: History: Post op total hip replacement. FINDINGS: Recent total hip replacement changes are noted. No dislocation or periprosthetic fracture. IMPRESSION: No dislocation or periprostatic fracture. POS: [facility]
--- NOTE | 2018-04-26 17:48 | PRG ---
DATE OF SERVICE: SUBJECTIVE: Mr. Hawkins's status is unchanged. He underwent atrial flutter ablation yesterday. He seems to be doing well. His recent echo suggested normal LVEF with severe aortic stenosis. OBJECTIVE: VITAL SIGNS: Heart rate 106, blood pressure 132/77. LUNGS: Clear to auscultation. HEART: Regular rate and rhythm. Tachycardic. ABDOMEN: Soft, nontender, nondistended. EXTREMITIES: No edema. PERTINENT LABORATORY DATA: Hemoglobin 12.7. Troponin 0.021. IMPRESSION: 1. Severe aortic stenosis. 2. Preop clearance. 3. Atrial flutter, status post ablation. RECOMMENDATIONS: Mr. Hawkins is currently doing well. At this point, he is certainly considered at an increased risk for complications, given his aortic stenosis. I have discussed this with Anesthesiology in addition to Orthopedic Surgery. I have also discussed with his family. They understand the risks. At this point, there is no need to proceed with cardiac intervention to get him through hip surgery. He will also need anticoagulation therapy for 1 month post atrial flutter ablation. Job ID: [id number]
[2018-04-26] MEDS: CEFAZOLIN 2 GM in Premix Bag 1 BAG IVPB SCH (20:03)
[2018-04-26] MEDS: Atorvastatin Calcium 40 MG TAB PO SCH (20:13)
[2018-04-26] MEDS ORDERED: Acetaminophen 1,000 MG in Premix Bag 1 BAG IVPB PRN (20:19)
--- NOTE | 2018-04-26 20:48 | PDOC.EVN ---
Event Note - Event Note Event Note: Patient had hip replacement done today. Postoperatively doing ok, but then noted to have fever and decreased responsiveness. Still talking but not swallowing any meds. More sleepy than previous. I examined patient at the bedside. Fever to 103, persistent sinus tachycardia inspite of Metoprolol started today. Lungs still clear. Patient just reports postop hip pain. Will culture blood and urine. Check CXR. Check Lactic acid. Start Zosyn and Vanc for new onset fever and sepsis. Continue close monitoring. BP holding up well.
[2018-04-26] MEDS: Vancomycin HCl 1 GM in Premix Bag 1 BAG IVPB SCH (21:19)
--- NOTE | 2018-04-26 21:20 | RAD ---
AP VIEW CHEST: 04/26/18 HISTORY: Fever. AP view chest obtained on 04/26/18. Comparison made to a previous exam from 04/23/18. AP view chest demonstrates small bilateral pleural effusions. Pulmonary vascular congestion seen. the re appears to be some patchy areas of density in the left lung base concerning for areas of left lowe r lobe atelectasis or pneumonia. No acute abnormalities seen. IMPRESSION: Bilateral pleural effusions and areas of possible left lower lobe pneumonia. Pulmonary vascular conge stion is also seen. POS: [facility]
--- NOTE | 2018-04-26 22:22 | OP ---
DATE OF PROCEDURE: 04/26/2018 PREOPERATIVE DIAGNOSIS: Left femoral neck fracture. POSTOPERATIVE DIAGNOSIS: Left femoral neck fracture. PROCEDURE: Left hip hemiarthroplasty. ANESTHESIA: General. COAL SHOOTER: Krystian. ESTIMATED BLOOD LOSS: 150 mL. IMPLANTS: DePuy system was used with a Robeline size 6 stem, a 28 x 52 mm bipolar cup and a +8.5 femoral head. COMPLICATIONS: None. DRAINS: None. SPECIMEN: Femoral head discarded. OUTCOME: Stable hemiarthroplasty postoperatively. INDICATIONS: Mr. Hawkins is a 68-year-old gentleman, status post ground level fall sustaining a displaced femoral neck fracture. The patient has an extensive past medical history including a very extensive cardiac history and is found to have critical aortic stenosis. The patient has had a pre-surgical evaluation by Cardiology and the patient is felt to be as optimized as we possibly can. It is felt the patient is still extremely high risk for perioperative complication and/or perioperative mortality. I had a thorough discussion with the patient's family prior to surgery with daughter functioning as spokesman for the family. I have discussed with them that there is significant intraoperative and perioperative risk with being 1 of the risks. They appear to understand. They have discussed this as a family and they would like to proceed with surgery in hopes of providing pain relief for their father and . Consent has been obtained. DESCRIPTION OF PROCEDURE: The patient was brought to the operating room and a time-out performed followed by induction of general anesthesia. The patient was then positioned in the right lateral decubitus position and sterile prep and drape was performed of the right lower extremity. A curvilinear incision was made, centered over the greater trochanter. After skin was sharply incised, dissection was carried down with electrocautery to the underlying tensor fascia and fascia kayy. This structure was incised in line with skin incision and then a Charnley retractor placed in the wound. The trochanteric bursa was swept off the short external rotators. An elevator was passed under the abductors and then the piriformis identified, divided, tagged, and reflected posteriorly. The superior and inferior gemelli were divided likewise and reflected posteriorly. At this time, a T-capsulotomy was performed and then the femoral head was removed without difficulty using a T-handle corkscrew device. This was sized to a size 52. Attention was placed to the proximal femur and the oscillating saw was used to make a femoral neck cut and then excess bone fragments were removed using the rongeur. A box chisel was used to obtain a starting point of the proximal femur and then T-handle awl passed down the canal. This was followed by progressive T-handle awls as well as a lateralizing reamer up to a size 6. Broaching was started at size 3, continued up to size 6, which gave a good fit and fill proximally. A trial reduction was then performed of the hip with a neutral head. There was still found to be some instability at the hip as such +8.5 mm head was inserted and this provided good stability. As such, all trial components were then removed from the hip and the hip was irrigated thoroughly with normal saline using Pulsavac. A size 6 stem was introduced in the proximal femur, followed by application of the bipolar head on the stem. The hip was reduced and found to have relatively good instability. The capsule was reapproximated with #1 Vicryl in interrupted fashion. This was followed by repair of the piriformis tendon again using #1 Vicryl. The #1 Vicryl was also used for the tensor fascia and fascia kayy followed by 0 Vicryl for the Davian fascia, 2-0 Vicryl subcutaneously and everton for the skin. Xeroform gauze tape dressing was applied to the left lateral thigh and the patient was transferred to recovery room in stable condition. There were no complications. The patient tolerated the procedure as well as could be expected and was transferred to Recovery in stable condition. Job ID: [id number]
[2018-04-26 22:48] LABS: Bilirubin Moderate (Negative); Blood, Urine Large (Negative); Clarity CLEAR (Clear); Glucose, Urine (Dipstick) Negative (Negative); Leukocyte Negative (Negative); Nitrite Negative (Negative); Protein, Urine (Dipstick) Trace mg/dL (Neg-Trace); Specific Gravity, Urine 1.041 (1.002-1.036); pH, Urine 5.5 (5.0-9.0)
[2018-04-26 22:51] LABS: Bacteria/HPF None Seen HPF (None Seen); Hyaline Casts/LPF 4-6 HYALINE CAST LPF (0-3 Hyaline); Pathc Cast-AUWi Flag 1.01 (0-2.49); RBC/HPF GREATER THAN 50-TNTC HPF (0-3); Squamous Epithelial 0-3 HPF (0-3)
[2018-04-26] MEDS: Piperacillin/Tazobactam 4.5 GM in Sodium Chloride 0.9% 100 ML IVPB SCH (23:31)
[2018-04-27] MEDS: CEFAZOLIN 2 GM in Premix Bag 1 BAG IVPB SCH (05:05)
[2018-04-27] MEDS: Sodium Chloride 0.9% 1,000 ML IV SCH ×2 (05:06→12:52)
[2018-04-27 05:09] LABS: Anion Gap 14 mmol/L (10-20); BUN (Urea Nitrogen) 8 mg/dL (8.4-25.7); Calc. Creatinine Clearance 99 mL/min (70-130); Calcium 8.4 mg/dL (7.8-10.44); Carbon Dioxide 21 mmol/L (23-31); Chloride 104 mmol/L (98-107); Estimated GFR-MDRD Greater than 90; Glucose 89 mg/dL (80-115); Potassium 3.6 mmol/L (3.5-5.1); Sodium 135 mmol/L (136-145)
[2018-04-27] MEDS: Piperacillin/Tazobactam 4.5 GM in Sodium Chloride 0.9% 100 ML IVPB SCH ×4 (05:14→23:29)
[2018-04-27 05:24] LABS: Band 7 % (5-11); Hemoglobin 11.8 g/dL (14.0-18.0); Lymphocytes 2 % (21-51); MDiff Complete? YES; Mean Corpuscular HGB CONC 32.8 g/dL (32.0-36.0); Mean Corpuscular Hemoglobin 37.2 pg (27.0-31.0); Mean Platelet Volume 8.6 fL (7.4-10.4); Monocytes 14 % (0-10); Neutrophil 76 % (42-75); Platelet Count 183 thou/uL (130-400); RBC Distribution Width 13.4 % (11.5-14.5); Reactive Lymphocytes 1 % (0-10); Red Blood Cell (RBC) Count 3.17 mill/uL (4.70-6.10); White Blood Cell (WBC) Count 9.4 thou/uL (4.8-10.8)
--- NOTE | 2018-04-27 08:31 | PRG ---
DATE OF SERVICE: 04/27/2018 SUBJECTIVE: This morning, the patient is awake, alert, and responsive. Denies any difficulty breathing. He had a chest x-ray taken yesterday, which shows evidence of CHF. His temperature is 103. He has had known history of SVT. OBJECTIVE: VITAL SIGNS: His sats this morning are 100% room air. His temperature is 101.6. Respiratory rate 20. CHEST: Decreased breath sounds. Minimal wheezing. CARDIAC: Normal S1, S2. No gallop. no murmers. LABORATORY DATA: White count normal_, platelet count is normal. His lytes are normal. Urine shows UTI. IMPRESSION: 1. Respiratory failure with congestive heart failure. 2. Alcohol abuse. 3. Supraventricular tachycardia. He is on Zosyn. Vancomycin started. Try and get a sputum on him. Source of his fever at this time is unclear. I doubt he has pneumonia. We will follow. Job ID: [id number] [facility]
[2018-04-27] MEDS: Famotidine/PF 20 mg/2ml Vial SLOW IVP SCH (08:46)
[2018-04-27] MEDS: Vancomycin HCl 1 GM in Premix Bag 1 BAG IVPB SCH ×2 (08:46→21:00)
[2018-04-27] MEDS: Acetaminophen 325 MG TAB PO PRN (08:46)
[2018-04-27] MEDS: Metoprolol Tartrate 25 MG TAB PO SCH ×2 (08:48→21:01)
[2018-04-27] MEDS: Multivitamin W/ Minerals 1 TAB PO SCH (08:48)
--- NOTE | 2018-04-27 09:56 | PDOC.PN ---
- Subjective Encounter Start Date: 04/27/18 Encounter Start Time: 11:10 Subjective: Patient with some more fever this morning but much more alert, taking -: his oral meds, got up with PT, heart rate now controlled on oral -: Metoprolol. - Objective Resuscitation Status - Order Detail: 04/23/18 18:17 Resuscitation Status Routine Resuscitation Status: DNAR: NO Resuscitation Discussed with: DISCUSSED WITH PATIENT WHO IS ALERT MAR Reviewed: Yes Vital Signs & Weight: Vital Signs (12 hours) Temp Pulse Ox 04/27/18 07:33 100 04/27/18 07:26 101.6 F H 04/27/18 03:51 99.6 F 04/26/18 23:35 99.6 F Weight Weight 143 lb 8.335 oz Most Recent Monitor Data Heart Rate from ECG 120 NIBP 134/78 NIBP BP-Mean 96 Respiration from ECG 21 SpO2 100 I&O: 04/26/18 04/27/18 04/28/18 06:59 06:59 06:59 Intake Total 2552.5 2120 Output Total 950 Balance 2552.5 1170 Result Diagrams: 04/27/18 04:11 04/27/18 04:11 Phys Exam - Physical Examination Constitutional: NAD HEENT: moist MMs Respiratory: no wheezing, no rales, no rhonchi Cardiovascular: RRR Gastrointestinal: soft, positive bowel sounds left hip in post op brace Psychiatric: normal affect Dx/Plan (1) Sepsis Code(s): A41.9 - SEPSIS, UNSPECIFIED ORGANISM Status: Acute Comment: Fever to 103 last night, persistent sinus tachycardia, normal Lactic acid and WBC. UA without bacteria. Cultures drawn. CXR with possible LLL pneumonia. Started on Zosyn and Vanc. (2) Sustained SVT Code(s): I47.1 - SUPRAVENTRICULAR TACHYCARDIA Status: Resolved Comment: Dr. Dhillon performed ablation on 04/25/2018, tendency to afib postop (3) CHF (congestive heart failure) Code(s): I50.9 - HEART FAILURE, UNSPECIFIED Status: Acute Qualifiers: Heart failure type: unspecified Comment: ECHO with normal EF, likely diastolic dysfunction, severe (4) Tobacco abuse Code(s): Z72.0 - TOBACCO USE Status: Chronic (5) Alcohol abuse Code(s): F10.10 - ALCOHOL ABUSE, UNCOMPLICATED Status: Chronic Comment: clinically doesn't appear to be in withdrawl, getting ativan and not shakey, sinus tach more likely related to hip fracture and pain. (6) Aortic stenosis, severe Code(s): I35.0 - NONRHEUMATIC AORTIC (VALVE) STENOSIS Status: Acute (7) Closed left hip fracture Code(s): S72.002A - FRACTURE OF UNSP PART OF NECK OF LEFT FEMUR, INIT Status: Acute Comment: s/p total hip replacement on 04/26/18 - Plan cont current plan of care, continue antibiotics, PT/OT, DVT proph w/SCDs * . - Discharge Day Encounter end time: 11:20
--- NOTE | 2018-04-27 11:08 | PDOC.CTH ---
Cardiology Progress Note - Subjective No changes overnight. HR still in the 100's. No complaints. BP stable - Objective Vital Signs Temp Pulse Ox 04/27/18 11:05 97.8 F 04/27/18 07:33 100 04/27/18 07:26 101.6 F H 04/27/18 03:51 99.6 F 04/26/18 23:35 99.6 F Weight 143 lb 8.335 oz 04/26/18 04/27/18 04/28/18 06:59 06:59 06:59 Intake Total 2552.5 2120 Output Total 950 Balance 2552.5 1170 - Physical Examination General/Neuro: NAD Neck: carotid US brisk, no JVD present Lungs: CTA, unlabored respirations Heart: PMI normal, RRR Abdomen: NT/ND, soft Extremities: + edema B - Telemetry Telemetry Rhythm: ST - Labs Result Diagrams: 04/27/18 04:11 04/27/18 04:11 Troponin/CKMB Troponin I 0.021 ng/mL (< 0.028) 04/23/18 18:28 - Assessment/Plan Aflutter s/p ablation Severe Recent hip surgery EtOH abuse Tobacco use Pericardial effusion (small) Rec ACT for 1 month. Recommend Xarelto 20mg Q noon when ok with ortho Increase BB Monitor for DT Pt doesn't appear to be in pain Nicotine patch Prognosis given his co-morbidities appear poor.
[2018-04-27] MEDS ORDERED: Metoprolol Tartrate 25 MG TAB PO SCH (11:15)
[2018-04-27] MEDS: Nicotine 21 MG PATCH TD SCH (15:58)
--- NOTE | 2018-04-27 18:02 | PRG ---
DATE OF SERVICE: 04/27/2018 SUBJECTIVE: Mr. Hawkins seems to be doing better after his left hip replacement and also atrial flutter ablation. He is maintaining normal sinus rhythm, still requiring pain control. OBJECTIVE DATA: VITAL SIGNS: Blood pressure is 132/81, heart rate is 120, respirations are 20, and temperature, the patient is afebrile. GENERAL: Alert and oriented man, who is little sedated with narcotics. NECK: Supple. Jugular veins not distended. CHEST: Coarse without crackles. HEART: Sounds are regular to rate and rhythm. Somewhat tachycardic. No murmur or gallop. ABDOMEN: Benign. Bowel sounds are positive. EXTREMITIES: Lower extremity without edema. Left hip repair site is in bandages. Right femoral groin catheter insertion site is without reaction. DATABASE: White blood cell count is 9.4, hemoglobin 11.8, and platelet count is 183. Sodium 135, potassium 3.6, BUN is 14, and creatinine _ ASSESSMENT AND PLAN: Mr. Hawkins is a pleasant 68-year-old man with prior history of EtOH abuse, who presented with atrial flutter, ventricular rate after trip and fall and hip fracture. He required cava tricuspid isthmus ablation to eliminate his atrial flutter, which was successfully performed two days ago. Ever since, he is maintaining sinus rhythm with increasing heart rate trend likely due to possible DTs developing and pain issues. He remains stable though from hemodynamic standpoint. He has significant valvular heart disease as witnessed by echocardiogram with severe and at least moderate MR. He has had significant pericardial effusions even before the ablation, but he remained hemodynamically stable, likely will be monitored. Long-term, he would benefit from anticoagulation at least a month post ablation once Orthopedic Surgery allow. Currently, he is on broad-spectrum antibiotics as well as vancomycin. Stable from EP standpoint. Would sign off. Please call if I can be further help. Job ID: [id number] [facility]
[2018-04-27] MEDS: Atorvastatin Calcium 40 MG TAB PO SCH (21:00)
[2018-04-28] MEDS: Piperacillin/Tazobactam 4.5 GM in Sodium Chloride 0.9% 100 ML IVPB SCH ×3 (05:10→22:03)
[2018-04-28] MEDS: Sodium Chloride 0.9% 1,000 ML IV SCH ×2 (05:10→05:13)
[2018-04-28 05:15] LABS: #Eosinphils 0.1 thou/uL (0.0-0.7); #Lymphocytes 1.1 thou/uL (1.20-3.40); #Monocytes 1.6 thou/uL (0.11-0.59); #Neutrophils 8.8 thou/uL (1.40-6.50); %Basophils 0.1 % (0.0-1.0); %Eosinophils 1.1 % (0.0-10.0); %Lymphocytes 9.4 % (21.0-51.0); %Monocytes 13.4 % (0.0-10.0); %Neutrophils 75.9 % (42.0-75.0); Hemoglobin 10.3 g/dL (14.0-18.0); Mean Corpuscular HGB CONC 32.8 g/dL (32.0-36.0); Mean Corpuscular Hemoglobin 36.9 pg (27.0-31.0); Mean Platelet Volume 8.7 fL (7.4-10.4); Platelet Count 210 thou/uL (130-400); RBC Distribution Width 13.3 % (11.5-14.5); Red Blood Cell (RBC) Count 2.79 mill/uL (4.70-6.10); White Blood Cell (WBC) Count 11.6 thou/uL (4.8-10.8)
[2018-04-28 08:31] LABS: Vancomycin, Trough 11.7 ug/mL
--- NOTE | 2018-04-28 08:49 | PRG ---
DATE OF SERVICE: 04/28/2018 SUBJECTIVE: Ulises Hawkins this morning, is awake, alert, and responsive. His echo showed severe aortic stenosis. EF is normal. Pulmonary marin, he appears to be relatively stable. OBJECTIVE: VITAL SIGNS: His heart rate is 120, saturations are 98%, blood pressure 120/78, respiratory rate 18, and afebrile. CHEST: Decreased breath sounds. No wheezing. CARDIAC: Sinus tachycardia. ABDOMEN: Soft. LABORATORY DATA: White count 42027, H and H are 10 and 31. IMPRESSION: 1. Status post ablation, status post left hip hemiarthroplasty. 2. Alcohol abuse and tobacco abuse. PLAN: Continue aggressive PT, supportive care. He is on broad-spectrum antibiotics. His cultures are negative. Has deescalate antibiotics. Job ID: [id number]
[2018-04-28] MEDS ORDERED: Nicotine 21 MG PATCH TD SCH (09:00)
[2018-04-28] MEDS: Famotidine/PF 20 mg/2ml Vial SLOW IVP SCH (09:44)
[2018-04-28] MEDS: Multivitamin W/ Minerals 1 TAB PO SCH (09:45)
[2018-04-28] MEDS: Vancomycin HCl 1 GM in Premix Bag 1 BAG IVPB SCH (09:45)
[2018-04-28] MEDS: Metoprolol Tartrate 25 MG TAB PO SCH ×2 (09:45→22:02)
--- NOTE | 2018-04-28 10:59 | PDOC.PN ---
- Subjective Encounter Start Date: 04/28/18 (f/u a fib) Encounter Start Time: 10:57 Subjective: Pt without complaints today, some pain in hip - Objective Resuscitation Status - Order Detail: 04/23/18 18:17 Resuscitation Status Routine Resuscitation Status: DNAR: NO Resuscitation Discussed with: DISCUSSED WITH PATIENT WHO IS ALERT Vital Signs & Weight: Vital Signs (12 hours) Temp BP 04/28/18 04:12 137/71 04/28/18 03:54 99.4 F 04/27/18 23:46 98.9 F Weight Weight 143 lb 8.335 oz Most Recent Monitor Data Heart Rate from ECG 105 NIBP 122/72 NIBP BP-Mean 88 Respiration from ECG 23 SpO2 97 I&O: 04/27/18 04/28/18 04/29/18 06:59 06:59 06:59 Intake Total 2120 3016 Output Total 950 600 Balance 1170 2416 Result Diagrams: 04/28/18 04:13 04/27/18 04:11 EKG Reviewed by me: Yes (sinus tach 110's) Phys Exam - Physical Examination Constitutional: NAD Respiratory: no wheezing, no rales, no rhonchi, clear to auscultation bilateral Cardiovascular: RRR 2/6 RASHMI most audible at apex Gastrointestinal: soft, non-tender, no distention, positive bowel sounds Musculoskeletal: no edema left hip brace in place Deviation from normal: ecchymosis along arms bilateral Dx/Plan (1) Anemia Code(s): D64.9 - ANEMIA, UNSPECIFIED Status: Acute Qualifiers: Anemia type: unspecified type Qualified Code(s): D64.9 - Anemia, unspecified (2) Atrial fibrillation with RVR Code(s): I48.91 - UNSPECIFIED ATRIAL FIBRILLATION Status: Acute Comment: s/ p cardioversion (3) Closed left hip fracture Code(s): S72.002A - FRACTURE OF UNSP PART OF NECK OF LEFT FEMUR, INIT Status: Acute Comment: s/p total hip replacement on 04/26/18 (4) Alcohol abuse Code(s): F10.10 - ALCOHOL ABUSE, UNCOMPLICATED Status: Chronic (5) Tobacco abuse Code(s): Z72.0 - TOBACCO USE Status: Chronic - Plan * Pt can be transferred to floor * start folic acid daily * d/c ivf and iv famotidine * post op care per Ortho * on beta sanford - adjusting per Cardiology * leukocytosis with left shift, afebrile, possible pneumonia on CXR from Apr - continue zosyn and vanc, anticipate these can be de-escalated when wbc stabilizes/lowers. Goodwin cath in place - d/c when able based on post-op status. Pt wears a brief at home, has no urge to void, may need i/o cath if + bladder scan * * dvt prophy - per Ortho * gi prophy - not indicated * code status DNR. Addendum - pt with increasing confusion this afternoon. With hx of fall leading to this hospitalization, CT brain ordered and negative. May be related to hospitalization and/or alcohol withdrawal and/or infection/medications. Continue to follow. Anemia worsening - check stool occult and follow closely. Will order type & screen in am as well.
--- NOTE | 2018-04-28 13:22 | PQF ---
CLINICAL DOCUMENTATION IMPROVEMENT CLARIFICATION FORM: ICD-10 Updated PLEASE DO AN ADDENDUM TO THE PROGRESS NOTE WITH ANY DOCUMENTATION UPDATES OR ADDITIONS AND CARRY THROUGH TO DC SUMMARY. THANK YOU. DATE: 04/28/18 ATTN: DR. CORMIER Please exercise your independent, professional judgment in responding to the clarification form. Clinical indicators are provided on the bottom of this form for your review Please check appropriate box(s): HEART FAILURE: A. TYPE: [ ] Systolic / HFrEF [ ] Diastolic / HFpEF [ ] Combined Systolic / Diastolic [ ] Other diagnosis [ X ] Unable to determine - reviewed echo and unable to determine due to a flutter, and normal EF. No mention in Cardiology notes of heart failure. In addition, please specify: Present on Admission (POA): [ ] Yes [ ] No [ ] Unable to determine For continuity of documentation, please document condition throughout progress notes and discharge summary. Thank You. CLINICAL INDICATORS - SIGNS / SYMPTOMS / LABS 04/26: "CHF, ACUTE" "ECHO WITH NORMAL EF, LIKELY DIASTOLIC DYSFUNCTION" BNP 484.8 RISKS: SVT AORTIC STENOSIS ATRIAL FIB TREATMENT: ECHOCARDIOGRAM CARDIAC MONITORING CARDIOLOGY CONSULT (This form is maintained as a part of the permanent medical record) 2014 [employer]. All Rights Reserved CARMEN [email or web address] Office: [phone] CARLOS ENRIQUE
--- NOTE | 2018-04-28 13:55 | PDOC.CTH ---
Cardiology Progress Note - Subjective Patient appears comfortable. No complaints. Not much verbal feedback. - Objective Vital Signs Temp Pulse Pulse BP BP BP Pulse Ox 04/28/18 12:11 121/89 04/28/18 10:10 112 H 115 H 157/90 H 134/88 04/28/18 08:00 115/78 04/28/18 07:43 100 04/28/18 04:12 137/71 04/28/18 03:54 99.4 F Pulse Ox Pulse Ox 04/28/18 12:11 04/28/18 10:10 100 100 04/28/18 08:00 04/28/18 07:43 04/28/18 04:12 04/28/18 03:54 Weight 143 lb 8.335 oz 04/27/18 04/28/18 04/29/18 06:59 06:59 06:59 Intake Total 2120 3016 Output Total 950 600 Balance 1170 2416 - Physical Examination General/Neuro: alert & oriented x3 Neck: no JVD present Heart: RRR Abdomen: NT/ND Extremities: other: (no edema) - Telemetry Telemetry Rhythm: SR - Labs Result Diagrams: 04/28/18 04:13 04/27/18 04:11 Troponin/CKMB Troponin I 0.021 ng/mL (< 0.028) 04/23/18 18:28 - Assessment/Plan 1. s/p left hip Fx and repair 2. Aflutter s/p RFA - in NSR 3. Severe 4. EtOH abuse 5. Pericardial effusion (small) Continue current meds. Plan for NOAC for 4-6 weeks. Need to start when ok with ortho.
--- NOTE | 2018-04-28 16:01 | CT ---
CT BRAIN 04/28/18 PROVIDED CLINICAL HISTORY: Confusion. Status post fall. FINDINGS: No comparisons. The ventricular system appears normal in size and morphology. There is no evidence of intracranial hemorrhage or mass effect. Areas of patchy diminished attenuation involving the cerebra l white matter compatible with chronic microvascular ischemic change. Vascular calcifications are not ed involving the carotid arteries. The extracranial soft tissues and osseous structures demonstrate n o acute findings. IMPRESSION: No evidence for intracranial hemorrhage or mass effect. POS: LAYO
[2018-04-28] MEDS: Nicotine 21 MG PATCH TD SCH (16:20)
[2018-04-28] MEDS: Atorvastatin Calcium 40 MG TAB PO SCH (22:02)
[2018-04-28] MEDS: Vancomycin HCl 1.25 GM in Sodium Chloride 0.9% 250 ML 250 ML IVPB SCH (22:03)
[2018-04-28] MEDS: Morphine 4 MG/ML VIAL SLOW IVP PRN (22:14)
[2018-04-29] MEDS: Piperacillin/Tazobactam 4.5 GM in Sodium Chloride 0.9% 100 ML IVPB SCH ×4 (04:00→21:17)
[2018-04-29 05:56] LABS: #Eosinphils 0.1 thou/uL (0.0-0.7); #Lymphocytes 1.1 thou/uL (1.20-3.40); #Monocytes 1.2 thou/uL (0.11-0.59); #Neutrophils 9.6 thou/uL (1.40-6.50); %Basophils 0.3 % (0.0-1.0); %Eosinophils 1.2 % (0.0-10.0); %Lymphocytes 9.4 % (21.0-51.0); %Monocytes 9.6 % (0.0-10.0); %Neutrophils 79.5 % (42.0-75.0); Hemoglobin 10.2 g/dL (14.0-18.0); Mean Corpuscular HGB CONC 32.9 g/dL (32.0-36.0); Mean Corpuscular Hemoglobin 37.1 pg (27.0-31.0); Mean Platelet Volume 9.2 fL (7.4-10.4); Platelet Count 253 thou/uL (130-400); RBC Distribution Width 13.5 % (11.5-14.5); Red Blood Cell (RBC) Count 2.75 mill/uL (4.70-6.10)
[2018-04-29 06:20] LABS: ALT (SGPT) Less than 7 U/L (8-55); AST (SGOT) 24 U/L (5-34); Albumin 2.9 g/dL (3.4-4.8); Alkaline Phosphatase 67 U/L (40-150); Anion Gap 14 mmol/L (10-20); BUN (Urea Nitrogen) 8 mg/dL (8.4-25.7); Bilirubin, Total 1.2 mg/dL (0.2-1.2); Calc. Creatinine Clearance 111 mL/min (70-130); Calcium 8.7 mg/dL (7.8-10.44); Carbon Dioxide 21 mmol/L (23-31); Chloride 101 mmol/L (98-107); Estimated GFR-MDRD Greater than 90; Globulin 3.1 g/dL (2.4-3.5); Glucose 101 mg/dL (80-115); Potassium 3.1 mmol/L (3.5-5.1); Sodium 133 mmol/L (136-145)
[2018-04-29 07:52] LABS: Bilirubin Small (Negative); Blood, Urine Small (Negative); Clarity CLEAR (Clear); Glucose, Urine (Dipstick) Negative (Negative); Leukocyte Negative (Negative); Nitrite Negative (Negative); Protein, Urine (Dipstick) Trace mg/dL (Neg-Trace); Specific Gravity, Urine 1.028 (1.002-1.036)
[2018-04-29 07:56] LABS: Yeast-AUWi Flag 47.1 (0-25.0)
[2018-04-29 08:08] LABS: Bacteria/HPF Rare-Few HPF (None Seen)
--- NOTE | 2018-04-29 09:16 | PDOC.PN ---
- Subjective Encounter Start Date: 04/29/18 Encounter Start Time: 09:14 Patient seen and examined, states he feels well, no new issues or complaints, no family at bedside, all questions answered. - Objective Resuscitation Status - Order Detail: 04/23/18 18:17 Resuscitation Status Routine Resuscitation Status: DNAR: NO Resuscitation Discussed with: DISCUSSED WITH PATIENT WHO IS ALERT Vital Signs & Weight: Vital Signs (12 hours) Temp Pulse Resp BP BP Pulse Ox 04/29/18 07:34 97.6 F 89 18 135/75 96 04/29/18 04:00 98.6 F 87 20 114/70 114/70 92 L Weight Weight 143 lb 8.335 oz Most Recent Monitor Data Heart Rate from ECG 92 NIBP 121/89 NIBP BP-Mean 99 Respiration from ECG 24 SpO2 100 I&O: 04/28/18 04/29/18 04/30/18 06:59 06:59 06:59 Intake Total 3016 1190 Output Total 600 900 Balance 2416 290 Result Diagrams: 04/29/18 04:56 04/29/18 04:56 Phys Exam - Physical Examination Constitutional: NAD HEENT: PERRLA, moist MMs, sclera anicteric Neck: no nodes, no JVD, supple Respiratory: no wheezing, no rales, no rhonchi Cardiovascular: no rub, irregular 2/6 RASHMI Gastrointestinal: soft, non-tender, no distention Musculoskeletal: no edema, pulses present Dx/Plan (1) Anemia Code(s): D64.9 - ANEMIA, UNSPECIFIED Status: Acute Qualifiers: Anemia type: unspecified type Qualified Code(s): D64.9 - Anemia, unspecified (2) Aortic stenosis, severe Code(s): I35.0 - NONRHEUMATIC AORTIC (VALVE) STENOSIS Status: Acute (3) Atrial fibrillation with RVR Code(s): I48.91 - UNSPECIFIED ATRIAL FIBRILLATION Status: Acute Comment: s/ p cardioversion (4) CHF (congestive heart failure) Code(s): I50.9 - HEART FAILURE, UNSPECIFIED Status: Acute Qualifiers: Heart failure type: unspecified Comment: ECHO with normal EF, likely diastolic dysfunction, severe (5) Closed left hip fracture Code(s): S72.002A - FRACTURE OF UNSP PART OF NECK OF LEFT FEMUR, INIT Status: Acute Comment: s/p total hip replacement on 04/26/18 (6) Alcohol abuse Code(s): F10.10 - ALCOHOL ABUSE, UNCOMPLICATED Status: Chronic - Plan * possibility of EtOh withdrawl? Patient's mentation appears to be stable today , I was not present yesterday so unsure how much improvement has occured * will check CBC, BMP, Folic acid and thiamine levels for now * transfer out of IMCU if stable over the next 24 hours * continue current plan of care * case and plan d/w patient at length, he understood and agreed with this plan
[2018-04-29] MEDS: Vancomycin HCl 1.25 GM in Sodium Chloride 0.9% 250 ML 250 ML IVPB SCH ×2 (09:24→21:16)
[2018-04-29] MEDS: Multivitamin W/ Minerals 1 TAB PO SCH (09:25)
[2018-04-29] MEDS: Metoprolol Tartrate 25 MG TAB PO SCH ×2 (09:26→21:37)
[2018-04-29] MEDS: Folic Acid 1 MG TAB PO SCH (09:26)
--- NOTE | 2018-04-29 13:11 | PRG ---
DATE OF SERVICE: 04/29/2018 SUBJECTIVE: This morning, he remains osteopathic. CT head was done, which is negative. OBJECTIVE: VITAL SIGNS: Temperature 97, pulse 75, respiratory rate 18, sats are 98% on room air, blood pressure 120/77. CHEST: Decreased breath sounds. No wheezing. CARDIAC: Normal S1 and S2. No gallops. ABDOMEN: No masses. LABORATORY DATA: White count 12,000, H and H 10 and 31. Lytes are normal. IMPRESSION: 1. Febrile illness, postoperative hip. No evidence of any sepsis. 2. Supraventricular tachycardia . PLAN: I would discontinue his Ativan. He is clearly very encephalopathic. I would discontinue his vancomycin at this stage. No need to suspect any staph infection. PT supportive care. Job ID: [id number]
[2018-04-29] MEDS: Morphine 4 MG/ML VIAL SLOW IVP PRN (21:17)
[2018-04-29] MEDS: Atorvastatin Calcium 40 MG TAB PO SCH (21:33)
[2018-04-30] MEDS: Piperacillin/Tazobactam 4.5 GM in Sodium Chloride 0.9% 100 ML IVPB SCH ×2 (04:55→09:03)
[2018-04-30 05:34] LABS: #Eosinphils 0.2 thou/uL (0.0-0.7); #Monocytes 1.1 thou/uL (0.11-0.59); #Neutrophils 6.7 thou/uL (1.40-6.50); %Basophils 0.3 % (0.0-1.0); %Eosinophils 2.6 % (0.0-10.0); %Lymphocytes 11.3 % (21.0-51.0); %Monocytes 12.1 % (0.0-10.0); %Neutrophils 73.9 % (42.0-75.0); Mean Corpuscular HGB CONC 33.1 g/dL (32.0-36.0); Mean Corpuscular Hemoglobin 37.2 pg (27.0-31.0); Mean Platelet Volume 8.8 fL (7.4-10.4); Platelet Count 263 thou/uL (130-400); RBC Distribution Width 13.5 % (11.5-14.5); Red Blood Cell (RBC) Count 2.68 mill/uL (4.70-6.10); White Blood Cell (WBC) Count 9.1 thou/uL (4.8-10.8)
[2018-04-30 05:58] LABS: Anion Gap 12 mmol/L (10-20); BUN (Urea Nitrogen) 10 mg/dL (8.4-25.7); Calc. Creatinine Clearance 94 mL/min (70-130); Calcium 8.8 mg/dL (7.8-10.44); Carbon Dioxide 22 mmol/L (23-31); Chloride 102 mmol/L (98-107); Estimated GFR-MDRD Greater than 90; Glucose 100 mg/dL (80-115); Sodium 133 mmol/L (136-145)
[2018-04-30] MEDS ORDERED: Potassium Chloride 20 MEQ TAB PO SCH (07:45)
[2018-04-30] MEDS ORDERED: Potassium Chloride 10 MEQ/100 ML PREMIX BAG IVPB SCH (08:15)
[2018-04-30] MEDS: Folic Acid 1 MG TAB PO SCH (08:45)
[2018-04-30] MEDS: Multivitamin W/ Minerals 1 TAB PO SCH (08:45)
[2018-04-30] MEDS: Metoprolol Tartrate 25 MG TAB PO SCH ×2 (08:46→20:54)
[2018-04-30 09:00] LABS: Vancomycin, Trough 19.1 ug/mL
[2018-04-30] MEDS: Vancomycin HCl 1.25 GM in Sodium Chloride 0.9% 250 ML 250 ML IVPB SCH (09:44)
--- NOTE | 2018-04-30 12:33 | PRG ---
DATE OF SERVICE: 04/30/2018 SUBJECTIVE: Ulises Hawkins is a 68-year-old gentleman, status post fall with fractured hip, encephalopathy. He is better. OBJECTIVE: VITAL SIGNS: Saturations are 97% on room air, temperature 98, pulse 87, respirations 17, blood pressure 138/82. CHEST: Decreased breath sounds. No wheezing. HEART: Normal S1 and S2. No gallop. ABDOMEN: No masses. LABORATORY DATA: White count 9000, hemoglobin and hematocrit of 10 and 30. His lytes are normal. IMPRESSION: Supraventricular tachycardia, congestive heart failure, alcohol abuse, tobacco abuse, aortic stenosis, fractured hip. The patient is doing quite well, PT seeing him today. Continue cardiac care. X-ray showed congestive heart failure. Probably we can discontinue the antibiotics, I do not see any evidence of any infection at this stage. All cultures are negative. Job ID: [id number]
--- NOTE | 2018-04-30 13:20 | PDOC.PN ---
- Subjective Encounter Start Date: 04/30/18 Encounter Start Time: 13:17 Patient seen and examined, daughter at bedside, all questions answered. No new issues in the past 24hours. - Objective Resuscitation Status - Order Detail: 04/23/18 18:17 Resuscitation Status Routine Resuscitation Status: DNAR: NO Resuscitation Discussed with: DISCUSSED WITH PATIENT WHO IS ALERT Vital Signs & Weight: Vital Signs (12 hours) Temp Pulse Resp BP Pulse Ox 04/30/18 11:20 98.3 F 81 16 128/77 94 L 04/30/18 07:25 98.0 F 87 17 131/82 96 04/30/18 03:35 97.6 F 77 20 105/58 L 95 Weight Weight 174 lb Most Recent Monitor Data Heart Rate from ECG 92 NIBP 121/89 NIBP BP-Mean 99 Respiration from ECG 24 SpO2 100 I&O: 04/29/18 04/30/18 05/01/18 06:59 06:59 06:59 Intake Total 1190 1260 Output Total 900 950 Balance 290 310 Result Diagrams: 04/30/18 05:14 04/30/18 05:14 Phys Exam - Physical Examination Constitutional: NAD HEENT: PERRLA, moist MMs, sclera anicteric Neck: no nodes, no JVD, supple Respiratory: no wheezing, no rales, no rhonchi Cardiovascular: RRR, no significant murmur Gastrointestinal: soft, non-tender, no distention Musculoskeletal: pulses present, edema present (trace) Dx/Plan (1) Anemia Code(s): D64.9 - ANEMIA, UNSPECIFIED Status: Acute Qualifiers: Anemia type: unspecified type Qualified Code(s): D64.9 - Anemia, unspecified (2) Aortic stenosis, severe Code(s): I35.0 - NONRHEUMATIC AORTIC (VALVE) STENOSIS Status: Acute (3) Atrial fibrillation with RVR Code(s): I48.91 - UNSPECIFIED ATRIAL FIBRILLATION Status: Acute Comment: s/ p cardioversion (4) CHF (congestive heart failure) Code(s): I50.9 - HEART FAILURE, UNSPECIFIED Status: Acute Qualifiers: Heart failure type: unspecified Comment: ECHO with normal EF, likely diastolic dysfunction, severe (5) Closed left hip fracture Code(s): S72.002A - FRACTURE OF UNSP PART OF NECK OF LEFT FEMUR, INIT Status: Acute Comment: s/p total hip replacement on 04/26/18 (6) Alcohol abuse Code(s): F10.10 - ALCOHOL ABUSE, UNCOMPLICATED Status: Chronic - Plan * appears to be making improvement * PT/OT * CM consultation for rehab vs SNF placement * labs in AM * DC plans once out patient placement arranged * no other changes to current plan of care * case and plan d/w patient and daughter at length, they understood and agreed with this plan
--- NOTE | 2018-04-30 14:09 | RAD ---
SINGLE VIEW OF THE CHEST: COMPARISON: 04/26/2018. HISTORY: Heart failure. Confusion. FINDINGS: A single view of the chest shows a cardiomediastinal silhouette which is upper limits of normal in si ze. Bilateral lower lobe opacities are seen extending from the hilar regions. This may represent pu lmonary edema. Small bilateral pleural effusions may also be present. IMPRESSION: Findings above are most consistent with congestive heart failure with development of small bilateral pleural effusions. POS: [facility]
[2018-04-30] MEDS: traMADol HCl 50 MG TAB PO PRN (14:20)
[2018-04-30] MEDS: Atorvastatin Calcium 40 MG TAB PO SCH (20:54)
[2018-05-01] MEDS: Ondansetron PF 4 MG/2 ML Vial IVP PRN ×3 (08:42→21:56)
[2018-05-01] MEDS: Multivitamin W/ Minerals 1 TAB PO SCH (08:42)
[2018-05-01] MEDS: Folic Acid 1 MG TAB PO SCH (08:42)
[2018-05-01] MEDS: Metoprolol Tartrate 25 MG TAB PO SCH ×2 (08:43→21:00)
--- NOTE | 2018-05-01 08:53 | PDOC.PN ---
- Subjective Encounter Start Date: 05/01/18 Encounter Start Time: 10:30 Subjective: No complaints this morning. No SOB. No cough. No fever. Hip pain -: controlled. - Objective Resuscitation Status - Order Detail: 04/23/18 18:17 Resuscitation Status Routine Resuscitation Status: DNAR: NO Resuscitation Discussed with: DISCUSSED WITH PATIENT WHO IS ALERT MAR Reviewed: Yes Vital Signs & Weight: Vital Signs (12 hours) Temp Pulse Resp BP Pulse Ox 05/01/18 07:20 98.2 F 94 17 128/72 92 L 05/01/18 03:35 98.5 F 85 20 104/56 L 92 L 04/30/18 20:53 98.0 F 83 18 124/65 94 L Weight Weight 174 lb Most Recent Monitor Data Heart Rate from ECG 92 NIBP 121/89 NIBP BP-Mean 99 Respiration from ECG 24 SpO2 100 I&O: 04/30/18 05/01/18 05/02/18 06:59 06:59 06:59 Intake Total 1260 1360 Output Total 950 675 Balance 310 685 Result Diagrams: 04/30/18 05:14 04/30/18 05:14 Phys Exam - Physical Examination Constitutional: NAD HEENT: moist MMs Respiratory: no wheezing, no rales, no rhonchi Cardiovascular: RRR holosystolic murmur Gastrointestinal: soft, positive bowel sounds Neurological: non-focal, moves all 4 limbs Psychiatric: normal affect Dx/Plan (1) Closed left hip fracture Code(s): S72.002A - FRACTURE OF UNSP PART OF NECK OF LEFT FEMUR, INIT Status: Acute Comment: s/p total hip replacement on 04/26/18 (2) Sepsis Code(s): A41.9 - SEPSIS, UNSPECIFIED ORGANISM Status: Resolved Comment: All cultures negative, antibiotics discontinued (3) Sustained SVT Code(s): I47.1 - SUPRAVENTRICULAR TACHYCARDIA Status: Resolved Comment: Dr. Dhillon performed ablation on 04/25/2018, tendency to afib postop, on Eliquis for one month only per Dr. Moya (4) CHF (congestive heart failure) Code(s): I50.9 - HEART FAILURE, UNSPECIFIED Status: Acute Qualifiers: Heart failure type: unspecified Comment: ECHO with normal EF, likely diastolic dysfunction, severe (5) Tobacco abuse Code(s): Z72.0 - TOBACCO USE Status: Chronic (6) Alcohol abuse Code(s): F10.10 - ALCOHOL ABUSE, UNCOMPLICATED Status: Chronic (7) Aortic stenosis, severe Code(s): I35.0 - NONRHEUMATIC AORTIC (VALVE) STENOSIS Status: Acute - Plan cont current plan of care, PT/OT, DVT proph w/SCDs to rehab once approved -: one month of anticoagulation only * . - Discharge Day Encounter end time: 10:40
--- NOTE | 2018-05-01 09:32 | PRG ---
DATE OF SERVICE: 05/01/2018 SUBJECTIVE: A 68-year-old gentleman, status post surgery for hip, is much improved, is less encephalopathic. OBJECTIVE: VITAL SIGNS: Sats are 92% on room air, respirations 17, temperature 98, pulse 94, blood pressure 120/72. CHEST: No wheezing. CARDIAC: Sinus tach. ABDOMEN: Soft without any masses. IMPRESSION: 1. Supraventricular tachycardia, status post ablation. 2. Congestive heart failure. 3. Bilateral pleural effusion. 4. Alcohol abuse. 5. Fractured hip. PLAN: He appears to be stable enough to be discharged home. Disposition as per primary care physician and Cardiology. Yesterday's and his last chest x-ray show improvement in his bilateral pleural effusion. Job ID: [id number]
[2018-05-01] MEDS ORDERED: Apixaban 5 MG TAB PO SCH (10:05)
--- NOTE | 2018-05-01 10:39 | PRG ---
DATE OF SERVICE: 05/01/2018 SUBJECTIVE: Mr. Hawkins appears more alert and awake today. His heart rate also is more stable. He appears to be in sinus rhythm. No current complaints except for mild nausea. He is scheduled for rehab. OBJECTIVE: VITAL SIGNS: Blood pressure 104/56, pulse 85, and temperature 98.5. LUNGS: Clear to auscultation. HEART: Regular rate and rhythm with 1 to 2/6 systolic ejection murmur. ABDOMEN: Soft, nontender, and nondistended. EXTREMITIES: No edema. PERTINENT LABORATORY DATA: Hemoglobin 10.0. Creatinine 0.67. IMPRESSION: 1. Severe aortic stenosis. 2. Small pericardial effusion. 3. Status post hip repair. 4. Alcohol abuse. RECOMMENDATIONS: Mr. Hawkins appears stable. He is scheduled for rehab. From my standpoint, he is cleared for rehab. We would recommend anticoagulation therapy for 1 month only. Eliquis has been started. We will also continue atorvastatin in addition to metoprolol at 50 mg p.o. b.i.d. PLAN: Plan is to follow Mr. Hawkins in the next 2 to 3 weeks. Job ID: [id number]
[2018-05-01] MEDS ORDERED: ISOVUE-370 76%-LOCM 1 ML ONE (13:16)
[2018-05-01] MEDS ORDERED: Polyethylene Glycol 3350 17 GM Packet PO SCH (19:45)
[2018-05-01] MEDS ORDERED: Bisacodyl 10 MG SUPP PR SCH (19:45)
--- NOTE | 2018-05-01 20:52 | PDOC.EVN ---
Event Note - Event Note Event Note: Patient started getting nauseated and now repeated vomiting. Reviewing chart no BM for 6 days. Patient denies abdominal pain, just nauseated. On exam his belly is distended, but not tender. Hyperactive bowel sounds of normal pitch. KUB with very distended small bowel. Will hold discharge. Rectal dulcolax. Check CT abdomen. Start daily if this is due to constipation.
[2018-05-01] MEDS: Atorvastatin Calcium 40 MG TAB PO SCH (21:00)
[2018-05-01] MEDS ORDERED: Potassium Chloride 40 MEQ in Sodium Chloride 0.9% 500 ML IVPB SCH (21:00)
[2018-05-01] MEDS: Apixaban 5 MG TAB PO SCH (21:00)
--- NOTE | 2018-05-01 21:00 | RAD ---
KUB: HISTORY: Small bowel obstruction. FINDINGS: There is air within both small and large bowel with generalized gaseous distention of the abdomen, wi thout definite signs for obstruction. No free air is seen on this supine film. Vascular calcificati ons are noted. A left hip prosthesis is present. Surgical clips are seen adjacent to the left hip. IMPRESSION: Generalized gaseous distention of the abdomen. POS: [facility]
--- NOTE | 2018-05-01 21:03 | RAD ---
PORTABLE CHEST: HISTORY: Shortness of breath. COMPARISON: The prior day's exam. FINDINGS: Heart size is within normal limits. There are atherosclerotic changes of the aorta. Bibasilar pleur al and parenchymal lung changes appear similar to the previous exam. No new process is noted. IMPRESSION: Bilateral pleural effusions with bibasilar lung changes, which could represent atelectasis or infiltr ate. Heart size does not appear enlarged. Perihilar markings do not appear significantly increased. Stable overall examination. POS: [facility]
--- NOTE | 2018-05-01 23:23 | CT ---
CT ABDOMEN AND PELVIS WITH CONTRAST: HISTORY: Vomiting. Possible bowel obstruction. FINDINGS: There are large bilateral pleural effusions with bibasilar atelectatic lung changes seen. The liver, spleen, pancreas, and gallbladder regions all appear unremarkable. The right and left adrenal glands are normal in appearance. Hypodensity involving the right kidney i s statistically most likely a cyst. There is no significant periaortic adenopathy. There is dense a therosclerotic change of the aorta, which is normal in caliber. No significant mesenteric adenopathy . There is air within both small and large bowel. There is a moderate amount of stool throughout th e colon. There is some diverticulosis if the sigmoid colon noted. There are no signs of obstruction . The appendix is normal. There is some minimal presacral fat stranding. There is slight wall thic kening to the rectosigmoid colon, suggesting possibly proctitis. A Goodwin catheter is in place. Some diffuse anasarca changes of the subcutaneous soft tissues. IMPRESSION: 1. Large bilateral pleural effusions with bibasilar atelectasis. 2. Moderate amount of stool throughout the colon without signs of obstruction. There is suggestion of wall thickening to the rectosigmoid colon with some presacral fat stranding associated with these changes, suggesting proctitis. 3. Anasarca type changes of the subcutaneous tissue. 4. Left hip prosthesis. POS: GABRIEL
[2018-05-02] MEDS ORDERED: Promethazine HCl 25 MG/ML VIAL IM PRN (01:05)
[2018-05-02] MEDS ORDERED: Piperacillin/Tazobactam 3.375 GM in Sodium Chloride 0.9% 100 ML IVPB SCH (01:15)
[2018-05-02 01:46] LABS: #Lymphocytes 0.8 thou/uL (1.20-3.40); #Monocytes 1.7 thou/uL (0.11-0.59); #Neutrophils 13.3 thou/uL (1.40-6.50); %Basophils 0.1 % (0.0-1.0); %Eosinophils 0.2 % (0.0-10.0); %Lymphocytes 4.7 % (21.0-51.0); %Monocytes 10.7 % (0.0-10.0); %Neutrophils 84.3 % (42.0-75.0); Hemoglobin 11.3 g/dL (14.0-18.0); Mean Corpuscular HGB CONC 32.7 g/dL (32.0-36.0); Mean Corpuscular Hemoglobin 36.5 pg (27.0-31.0); Mean Platelet Volume 8.3 fL (7.4-10.4); Platelet Count 383 thou/uL (130-400); RBC Distribution Width 13.7 % (11.5-14.5); Red Blood Cell (RBC) Count 3.08 mill/uL (4.70-6.10); White Blood Cell (WBC) Count 15.8 thou/uL (4.8-10.8)
[2018-05-02] MEDS: Metoprolol Tartrate 5 MG/5 ML VIAL IVP SCH ×4 (05:08→23:50)
--- NOTE | 2018-05-02 07:50 | DIS ---
DATE OF ADMISSION: 04/23/2018 DATE OF DISCHARGE: 05/01/2018 PRIMARY CARE PHYSICIAN: Lynn Ramirez PA-C REASON FOR ADMISSION: Right hip fracture and atrial flutter. DIAGNOSES AT DISCHARGE: 1. Closed fracture of the left hip, status post replacement. 2. Sustained atrial flutter, status post ablation, now in normal sinus rhythm. 3. Diastolic congestive heart failure with severe aortic stenosis. 4. Alcohol abuse. 5. Tobacco abuse. PROCEDURES: 1. CT scan with IV contrast of the chest and thorax showing no evidence of pulmonary embolism with moderate bilateral pleural effusions. 2. Hip, pelvis, and femur x-ray showing a left femoral neck fracture, subcapital. 3. Transesophageal echocardiogram showing no intracardiac clots, [id number] aortic stenosis, [id number] pleural effusions, and moderate pericardial effusion without evidence of tamponade. 4. Radiofrequency ablation with successful ablation of atrial flutter with a tendency to atrial fibrillation afterward, which was cardioverted. 5. CT of the brain without contrast showing no evidence for hemorrhage, mass effect, or infarct. 6. Transthoracic echocardiogram showing ejection fraction of 55% to 60% and severe aortic stenosis. CONSULTATIONS: 1. Cardiology, Dr. Moya. 2. Orthopedics, Dr. Ortega. 3. Pulmonology, Dr. Biswas. 4. Electrophysiology, Dr. Dhillon. SUMMARY OF HOSPITAL COURSE: This is a 68-year-old white male with a known history of alcohol abuse, who came in with a complaint of left hip pain after a fall 3 days ago. He was found to have a subcapital left hip fracture, but also noted to have atrial fibrillation/atrial flutter with rapid ventricular rate. This was unable to be controlled on diltiazem drip. The patient was admitted and evaluated by Cardiology. They were unable to get his rate controlled due to the persistent atrial flutter, so Dr. Dhillon was consulted. MEY showed no clot, but he did have severe aortic stenosis and a radiofrequency ablation was done with good result. He did have some atrial fibrillation and immediately afterward, this was cardioverted and he did not have any recurrence. The patient's cardiovascular status was maximized as possible given his severe aortic stenosis and then Dr. Ortega to go ahead and do a left hip replacement. The patient did have some possible sepsis after the hip replacement with some tachycardia, fever, but all cultures came back negative and his symptoms resolved. Eventually, his antibiotics were discontinued. No source of infection was ever found. He also had some confusion during his hospitalization. This was thought to be due to a combination of alcohol withdrawal and his hospitalization with hip fracture and heart problems. This did improve over his hospitalization and he became more alert and aware. The patient was doing better with physical therapy and is being discharged to rehabilitation. DISCHARGE MANAGEMENT: Discharged to inpatient rehabilitation. ACTIVITY: As tolerated. THERAPY: Occupational, physical, and speech therapy. DIET: Regular diet with mechanical soft ground meat. No breads, extra sauce and gravy, and controlled sips by straw. FOLLOWUP: The patient is to follow up with Dr. Moya in 3 to 4 weeks and with Lynn Ramirez PA-C after rehabilitation. DISCHARGE MEDICATIONS: 1. Acetaminophen as needed. 2. Eliquis 5 mg twice a day for 1 month, after which it can be discontinued. 3. Lipitor 40 mg at night. 4. Folic acid 1 mg daily. 5. Metoprolol 50 mg twice a day. 6. Multivitamin with minerals 1 tablet daily. 7. Thiamine 100 mg daily. 8. Tramadol 50 to 100 mg every 4 hours as needed for pain. Arranging the details of this discharge took 35 minutes. Job ID: [id number]
--- NOTE | 2018-05-02 08:10 | PDOC.PN ---
- Subjective Encounter Start Date: 05/02/18 Encounter Start Time: 10:50 Subjective: Patient with onset of Nausea and vomiting last night, distended abdomen. CT -: with stool in colon but no obstruction, passed stool after Dulcolax -: suppository. Patient very gurgly this AM and still vomiting. No Abd pain. - Objective Resuscitation Status - Order Detail: 04/23/18 18:17 Resuscitation Status Routine Resuscitation Status: DNAR: NO Resuscitation Discussed with: DISCUSSED WITH PATIENT WHO IS ALERT MAR Reviewed: Yes Vital Signs & Weight: Vital Signs (12 hours) Temp Pulse Resp BP Pulse Ox 05/02/18 07:20 98.0 F 110 H 19 130/72 92 L 05/02/18 04:00 98.1 F 116 H 20 124/69 92 L 05/02/18 00:00 99.6 F 123 H 18 140/95 H 95 Weight Weight 174 lb Most Recent Monitor Data Heart Rate from ECG 92 NIBP 121/89 NIBP BP-Mean 99 Respiration from ECG 24 SpO2 100 I&O: 05/01/18 05/02/18 05/03/18 06:59 06:59 06:59 Intake Total 1360 1350 Output Total 675 600 Balance 685 750 Result Diagrams: 05/02/18 01:40 04/30/18 05:14 Phys Exam - Physical Examination Constitutional: NAD HEENT: moist MMs gurgling in back of throat, weak cough unable to clear Respiratory: no wheezing, no rales, no rhonchi Cardiovascular: RRR Gastrointestinal: soft, non-tender, positive bowel sounds distended, hyperactive bowel sounds Neurological: non-focal, moves all 4 limbs Psychiatric: normal affect, A&O x 3 Dx/Plan (1) Nausea and vomiting Code(s): R11.2 - NAUSEA WITH VOMITING, UNSPECIFIED Status: Acute Comment: NPO, may need NG tube, consult Dr. Edmonds. CT without obstruction, possible illeus from constipation. (2) Closed left hip fracture Code(s): S72.002A - FRACTURE OF UNSP PART OF NECK OF LEFT FEMUR, INIT Status: Acute Comment: s/p total hip replacement on 04/26/18 (3) Sepsis Code(s): A41.9 - SEPSIS, UNSPECIFIED ORGANISM Status: Resolved Comment: All cultures negative, antibiotics discontinued (4) Sustained SVT Code(s): I47.1 - SUPRAVENTRICULAR TACHYCARDIA Status: Resolved Comment: Dr. Dhillon performed ablation on 04/25/2018, tendency to afib postop, on Eliquis for one month only per Dr. Moya (5) CHF (congestive heart failure) Code(s): I50.9 - HEART FAILURE, UNSPECIFIED Status: Acute Qualifiers: Heart failure type: unspecified Comment: ECHO with normal EF, likely diastolic dysfunction, severe (6) Tobacco abuse Code(s): Z72.0 - TOBACCO USE Status: Chronic (7) Alcohol abuse Code(s): F10.10 - ALCOHOL ABUSE, UNCOMPLICATED Status: Chronic (8) Aortic stenosis, severe Code(s): I35.0 - NONRHEUMATIC AORTIC (VALVE) STENOSIS Status: Acute (9) Constipation Code(s): K59.00 - CONSTIPATION, UNSPECIFIED Status: Acute Comment: daily stool softener and laxative as needed - Plan cont current plan of care NPO per speech therapy for now * . - Discharge Day Encounter end time: 11:20
[2018-05-02] MEDS: Polyethylene Glycol 3350 17 GM Packet PO SCH (08:37)
[2018-05-02 08:50] LABS: Vancomycin, Trough 7.5 ug/mL
[2018-05-02] MEDS: Folic Acid 1 MG TAB PO SCH (09:14)
[2018-05-02] MEDS: Apixaban 5 MG TAB PO SCH ×2 (09:14→21:33)
[2018-05-02] MEDS: Multivitamin W/ Minerals 1 TAB PO SCH (09:14)
--- NOTE | 2018-05-02 16:13 | PDOC.CTH ---
Cardiology Progress Note - Subjective Patient was scheduled for rehab placement today, but then developed acute nausea and possible ileus. Changed to IV metoprolol. Rhythm remains sinus tach. - Objective Vital Signs Temp Pulse Pulse Resp BP BP Pulse Ox 05/02/18 15:05 98.0 F 110 H 17 141/81 H 97 05/02/18 11:30 98.5 F 114 H 19 147/79 H 96 05/02/18 11:16 117 H 169/96 H 05/02/18 07:20 98.0 F 110 H 19 130/72 92 L Pulse Ox Pulse Ox 05/02/18 15:05 05/02/18 11:30 05/02/18 11:16 88 L 94 L 05/02/18 07:20 Admit Weight 143 lb 8.335 oz Weight 174 lb 05/01/18 05/02/18 05/03/18 06:59 06:59 06:59 Intake Total 1360 1350 Output Total 675 600 Balance 685 750 - Physical Examination General/Neuro: other: (alert and awake) Lungs: CTA Heart: other: (Regular, tachy) - Telemetry Telemetry Rhythm: STach - Labs Result Diagrams: 05/02/18 01:40 04/30/18 05:14 Troponin/CKMB Troponin I 0.021 ng/mL (< 0.028) 04/23/18 18:28 - Assessment/Plan 1. s/p left hip Fx and repair 2. Aflutter s/p RFA - in NSR 3. Severe 4. EtOH abuse 5. Pericardial effusion (small) 6. Acute nausea Awaiting GI consult. If remains NPO will need Lovenox instead of Eliquis to start tonight.
[2018-05-02] MEDS: Atorvastatin Calcium 40 MG TAB PO SCH (21:34)
[2018-05-03 04:46] LABS: #Eosinphils 0.3 thou/uL (0.0-0.7); #Lymphocytes 1.2 thou/uL (1.20-3.40); #Monocytes 1.5 thou/uL (0.11-0.59); #Neutrophils 12.5 thou/uL (1.40-6.50); %Basophils 0.2 % (0.0-1.0); %Eosinophils 1.8 % (0.0-10.0); %Lymphocytes 7.7 % (21.0-51.0); %Monocytes 9.7 % (0.0-10.0); %Neutrophils 80.6 % (42.0-75.0); Hemoglobin 10.1 g/dL (14.0-18.0); Mean Corpuscular HGB CONC 32.6 g/dL (32.0-36.0); Mean Corpuscular Hemoglobin 36.7 pg (27.0-31.0); Mean Platelet Volume 8.2 fL (7.4-10.4); Platelet Count 384 thou/uL (130-400); RBC Distribution Width 13.9 % (11.5-14.5); Red Blood Cell (RBC) Count 2.76 mill/uL (4.70-6.10); White Blood Cell (WBC) Count 15.5 thou/uL (4.8-10.8)
[2018-05-03 05:11] LABS: Anion Gap 12 mmol/L (10-20); BUN (Urea Nitrogen) 9 mg/dL (8.4-25.7); Calc. Creatinine Clearance 111 mL/min (70-130); Carbon Dioxide 26 mmol/L (23-31); Chloride 100 mmol/L (98-107); Estimated GFR-MDRD Greater than 90; Glucose 94 mg/dL (80-115); Potassium 3.8 mmol/L (3.5-5.1); Sodium 134 mmol/L (136-145)
[2018-05-03] MEDS: Metoprolol Tartrate 5 MG/5 ML VIAL IVP SCH ×3 (05:36→17:35)
[2018-05-03] MEDS: Sodium Chloride 0.9% 1,000 ML IV SCH ×2 (05:36→17:34)
--- NOTE | 2018-05-03 07:22 | PDOC.PN ---
- Subjective Encounter Start Date: 05/03/18 Encounter Start Time: 09:10 Subjective: Patient still gurgly this morning. No more nausea or vomiting. NPO per ST -: recs yest and willl attempt again today. Abdomen less distended and -: having bowel movements. - Objective Resuscitation Status - Order Detail: 04/23/18 18:17 Resuscitation Status Routine Resuscitation Status: DNAR: NO Resuscitation Discussed with: DISCUSSED WITH PATIENT WHO IS ALERT MAR Reviewed: Yes Vital Signs & Weight: Vital Signs (12 hours) Temp Pulse Resp BP Pulse Ox 05/03/18 04:00 98.3 F 107 H 20 137/74 98 05/02/18 23:49 98.2 F 107 H 20 128/66 96 Weight Admit Weight 143 lb 8.335 oz Weight 174 lb Most Recent Monitor Data Heart Rate from ECG 92 NIBP 121/89 NIBP BP-Mean 99 Respiration from ECG 24 SpO2 100 I&O: 05/02/18 05/03/18 05/04/18 06:59 06:59 06:59 Intake Total 1350 100 Output Total 600 500 Balance 750 -400 Result Diagrams: 05/03/18 04:26 05/03/18 04:26 Phys Exam - Physical Examination Constitutional: NAD HEENT: moist MMs gurgling in throat with weak cough Respiratory: no wheezing, no rales, no rhonchi Cardiovascular: RRR Gastrointestinal: soft, non-tender, no distention, positive bowel sounds Neurological: non-focal, moves all 4 limbs Psychiatric: normal affect, A&O x 3 Dx/Plan (1) Nausea and vomiting Code(s): R11.2 - NAUSEA WITH VOMITING, UNSPECIFIED Status: Acute Comment: NPO, may need NG tube. CT without obstruction, possible illeus from constipation but seems to be resolving, will consult Dr. Edmonds again if symptoms recurr. (2) Closed left hip fracture Code(s): S72.002A - FRACTURE OF UNSP PART OF NECK OF LEFT FEMUR, INIT Status: Acute Comment: s/p total hip replacement on 04/26/18 (3) Sepsis Code(s): A41.9 - SEPSIS, UNSPECIFIED ORGANISM Status: Resolved Comment: All cultures negative, antibiotics discontinued (4) Sustained SVT Code(s): I47.1 - SUPRAVENTRICULAR TACHYCARDIA Status: Resolved Comment: Dr. Dhillon performed ablation on 04/25/2018, tendency to afib postop, on Eliquis for one month only per Dr. Moya (5) CHF (congestive heart failure) Code(s): I50.9 - HEART FAILURE, UNSPECIFIED Status: Acute Qualifiers: Heart failure type: unspecified Comment: ECHO with normal EF, likely diastolic dysfunction, severe (6) Tobacco abuse Code(s): Z72.0 - TOBACCO USE Status: Chronic (7) Alcohol abuse Code(s): F10.10 - ALCOHOL ABUSE, UNCOMPLICATED Status: Chronic (8) Aortic stenosis, severe Code(s): I35.0 - NONRHEUMATIC AORTIC (VALVE) STENOSIS Status: Acute (9) Constipation Code(s): K59.00 - CONSTIPATION, UNSPECIFIED Status: Acute Comment: daily stool softener and laxative as needed (10) Leukocytosis Code(s): D72.829 - ELEVATED WHITE BLOOD CELL COUNT, UNSPECIFIED Status: Acute Comment: concern for possible aspiration during vomiting, still very gurgly and not clear to swallow yet by speech therapy, CXR without new infiltrate and no fever or change in respiratory status as of yet - Plan cont current plan of care, PT/OT Holding on antibiotics for now -: Speech therapy to continue working on getting patient swallowing again * . - Discharge Day Encounter end time: 09:20
--- NOTE | 2018-05-03 08:29 | RAD ---
SINGLE VIEW CHEST: HISTORY: Aspiration pneumonia. COMPARISON: 05/01/2018 FINDINGS: A single view of the chest shows a cardiomediastinal silhouette, which is at the upper limits of norm al in size with atherosclerotic calcifications in the aorta. There are bilateral pleural effusions, right greater than left. These appear to have slightly enlarged, compared to the prior examination. IMPRESSION: Bilateral pleural effusions. POS: GABRIEL
[2018-05-03] MEDS: Apixaban 5 MG TAB PO SCH ×2 (09:11→20:20)
[2018-05-03] MEDS: Polyethylene Glycol 3350 17 GM Packet PO SCH (09:11)
[2018-05-03] MEDS: Multivitamin W/ Minerals 1 TAB PO SCH (09:11)
[2018-05-03] MEDS: Folic Acid 1 MG TAB PO SCH (09:11)
[2018-05-03] MEDS: Cephalexin 250 MG CAP PO SCH ×3 (12:30→23:20)
[2018-05-03] MEDS: CEFAZOLIN 1 GM in Sodium Chloride 0.9% 100 ML IVPB SCH (17:49)
[2018-05-03] MEDS: Atorvastatin Calcium 40 MG TAB PO SCH (20:20)
[2018-05-04] MEDS: Metoprolol Tartrate 5 MG/5 ML VIAL IVP SCH ×5 (01:07→23:46)
[2018-05-04] MEDS: CEFAZOLIN 1 GM in Sodium Chloride 0.9% 100 ML IVPB SCH ×3 (01:07→17:45)
[2018-05-04] MEDS: Cephalexin 250 MG CAP PO SCH ×4 (05:31→23:38)
[2018-05-04 06:13] LABS: #Eosinphils 0.3 thou/uL (0.0-0.7); #Lymphocytes 1.2 thou/uL (1.20-3.40); #Monocytes 1.3 thou/uL (0.11-0.59); #Neutrophils 10.4 thou/uL (1.40-6.50); %Basophils 0.4 % (0.0-1.0); %Eosinophils 2.4 % (0.0-10.0); %Lymphocytes 8.8 % (21.0-51.0); %Monocytes 10.1 % (0.0-10.0); %Neutrophils 78.4 % (42.0-75.0); Hemoglobin 10.3 g/dL (14.0-18.0); Mean Corpuscular HGB CONC 32.3 g/dL (32.0-36.0); Mean Corpuscular Hemoglobin 36.6 pg (27.0-31.0); Mean Platelet Volume 8.5 fL (7.4-10.4); Platelet Count 419 thou/uL (130-400); RBC Distribution Width 13.9 % (11.5-14.5); Red Blood Cell (RBC) Count 2.81 mill/uL (4.70-6.10); White Blood Cell (WBC) Count 13.3 thou/uL (4.8-10.8)
[2018-05-04] MEDS: Sodium Chloride 0.9% 1,000 ML IV SCH (06:29)
--- NOTE | 2018-05-04 08:50 | PDOC.CTH ---
Cardiology Progress Note - Subjective No overnight events. Patient remains NPO as directed by ST. Receiving Lopressor IV. Rhythm stable. - Objective Vital Signs Temp Pulse Resp BP BP Pulse Ox 05/04/18 08:23 99.3 F 98 22 H 136/73 94 L 05/04/18 03:25 98.2 F 99 16 132/77 96 05/03/18 23:00 136/81 Admit Weight 143 lb 8.335 oz Weight 174 lb 05/03/18 05/04/18 05/05/18 06:59 06:59 06:59 Intake Total 100 1740 Output Total 500 575 Balance -400 1165 - Physical Examination General/Neuro: alert & oriented x3 Neck: no JVD present Heart: RRR Abdomen: NT/ND - Telemetry Telemetry Rhythm: SR - Labs Result Diagrams: 05/04/18 05:21 05/03/18 04:26 Troponin/CKMB Troponin I 0.021 ng/mL (< 0.028) 04/23/18 18:28 - Assessment/Plan 1. s/p left hip Fx and repair 2. Aflutter s/p RFA - in NSR 3. Severe 4. EtOH abuse 5. Pericardial effusion (small) 6. Acute nausea and questionable ileus - resolvign Patient remains NPO. Will add lovenox until po meds allowed.
--- NOTE | 2018-05-04 08:59 | PDOC.PN ---
- Subjective Encounter Start Date: 05/04/18 Encounter Start Time: 11:10 Subjective: Patient without further nausea or vomiting. Less secretions in the back -: of his throat today. No SOB. No cough. No fever. - Objective Resuscitation Status - Order Detail: 04/23/18 18:17 Resuscitation Status Routine Resuscitation Status: DNAR: NO Resuscitation Discussed with: DISCUSSED WITH PATIENT WHO IS ALERT MAR Reviewed: Yes Vital Signs & Weight: Vital Signs (12 hours) Temp Pulse Resp BP BP Pulse Ox 05/04/18 08:23 99.3 F 98 22 H 136/73 94 L 05/04/18 03:25 98.2 F 99 16 132/77 96 05/03/18 23:00 136/81 Weight Admit Weight 143 lb 8.335 oz Weight 174 lb Most Recent Monitor Data Heart Rate from ECG 92 NIBP 121/89 NIBP BP-Mean 99 Respiration from ECG 24 SpO2 100 I&O: 05/03/18 05/04/18 05/05/18 06:59 06:59 06:59 Intake Total 100 1740 Output Total 500 575 Balance -400 1165 Result Diagrams: 05/04/18 05:21 05/03/18 04:26 Phys Exam - Physical Examination Constitutional: NAD HEENT: moist MMs Respiratory: no wheezing, no rales, no rhonchi Cardiovascular: RRR 3/6 systolic murmur Gastrointestinal: soft, non-tender, positive bowel sounds significant edema to LLE Neurological: non-focal, moves all 4 limbs Psychiatric: normal affect, A&O x 3 Dx/Plan (1) Leukocytosis Code(s): D72.829 - ELEVATED WHITE BLOOD CELL COUNT, UNSPECIFIED Status: Acute Comment: concern for possible aspiration during vomiting, still very gurgly and not clear to swallow yet by speech therapy, CXR without new infiltrate and no fever or change in respiratory status as of yet, WBC improving spontaneously (2) Nausea and vomiting Code(s): R11.2 - NAUSEA WITH VOMITING, UNSPECIFIED Status: Resolved Comment : NPO. CT without obstruction, possible illeus from constipation but seems to be resolving, will consult Dr. Edmonds again if symptoms recurr. (3) Closed left hip fracture Code(s): S72.002A - FRACTURE OF UNSP PART OF NECK OF LEFT FEMUR, INIT Status: Acute Comment: s/p total hip replacement on 04/26/18 (4) Sepsis Code(s): A41.9 - SEPSIS, UNSPECIFIED ORGANISM Status: Resolved Comment: All cultures negative, antibiotics discontinued (5) Sustained SVT Code(s): I47.1 - SUPRAVENTRICULAR TACHYCARDIA Status: Resolved Comment: Dr. Dhillon performed ablation on 04/25/2018, tendency to afib postop, on Eliquis for one month only per Dr. Moya (6) CHF (congestive heart failure) Code(s): I50.9 - HEART FAILURE, UNSPECIFIED Status: Acute Qualifiers: Heart failure type: unspecified Comment: ECHO with normal EF, likely diastolic dysfunction, severe , increased edema after started on fluids once NPO. One dose lasix and d/c IV fluids. (7) Tobacco abuse Code(s): Z72.0 - TOBACCO USE Status: Chronic (8) Alcohol abuse Code(s): F10.10 - ALCOHOL ABUSE, UNCOMPLICATED Status: Chronic (9) Aortic stenosis, severe Code(s): I35.0 - NONRHEUMATIC AORTIC (VALVE) STENOSIS Status: Acute (10) Constipation Code(s): K59.00 - CONSTIPATION, UNSPECIFIED Status: Acute Comment: daily stool softener and laxative as needed - Plan cont current plan of care, PT/OT, speech therapy U/S RLE negative for DVT, will give a dose of lasix -: MBS later this afternoon. * . - Discharge Day Encounter end time: 11:20
[2018-05-04] MEDS ORDERED: Furosemide 40 MG/4 ML VIAL SLOW IVP SCH (16:00)
--- NOTE | 2018-05-04 17:07 | RAD ---
MODIFIED BARIUM SWALLOW IN THE PRESENCE OF A SPEECH THERAPIST: Date: 05/04/18 HISTORY: Dysphagia, oropharyngeal phase; feeding difficulties. FINDINGS/IMPRESSION: There is laryngeal penetration and aspiration with residue in the vallecula and piriform sinuses. Please see recommendations of the speech therapist for further management. POS: LAYO
--- NOTE | 2018-05-04 17:20 | ULT ---
ULTRASOUND WITH DOPPLER DUPLEX VENOUS LOWER EXTREMITY RIGHT: CPT: 56645 ICD-10-PCS: B54D INDICATION: Edema. TECHNIQUE: Color flow Doppler, spectral waveform analysis of pulsed Doppler, and torres-scale imaging with terrell alina and augmentation, were used to evaluate the right common femoral, femoral, popliteal, posterior tibial, and superficial femoral, veins; and the proximal portions of the profunda femoral and greater saphenous, veins. FINDINGS: There is appropriate compressibility and flow within the imaged deep vein system of the right lower e xtremity. Soft tissue edema is present. IMPRESSION: 1. No deep venous thrombosis visualized within the right lower extremity. 2. Soft tissue edema. Correlate clinically. POS: TPC
[2018-05-04] MEDS: Enoxaparin Sodium 80 MG/0.8 ML SYRINGE SC SCH ×2 (17:32→21:08)
[2018-05-04] MEDS: Multivitamin W/ Minerals 1 TAB PO SCH (17:45)
[2018-05-04] MEDS: Polyethylene Glycol 3350 17 GM Packet PO SCH (17:46)
[2018-05-04] MEDS: Folic Acid 1 MG TAB PO SCH (17:46)
[2018-05-04 18:39] LABS: Hemoglobin 11.1 g/dL (14.0-18.0); Platelet Count 441 thou/uL (130-400)
[2018-05-04 19:00] LABS: Calc. Creatinine Clearance 97 mL/min (70-130); Estimated GFR-MDRD Greater than 90
[2018-05-04] MEDS ORDERED: Apixaban 5 MG TAB PO SCH (21:00)
[2018-05-04] MEDS: Apixaban 5 MG TAB PO SCH (21:04)
[2018-05-04] MEDS: Atorvastatin Calcium 40 MG TAB PO SCH (21:08)
[2018-05-05] MEDS: CEFAZOLIN 1 GM in Sodium Chloride 0.9% 100 ML IVPB SCH (02:50)
[2018-05-05] MEDS: Metoprolol Tartrate 5 MG/5 ML VIAL IVP SCH ×4 (05:36→23:52)
[2018-05-05] MEDS: Cephalexin 250 MG CAP PO SCH ×4 (05:41→23:51)
[2018-05-05 05:52] LABS: #Basophils 0.1 thou/uL (0.0-0.2); #Eosinphils 0.3 thou/uL (0.0-0.7); #Lymphocytes 1.3 thou/uL (1.20-3.40); #Monocytes 1.3 thou/uL (0.11-0.59); #Neutrophils 8.4 thou/uL (1.40-6.50); %Basophils 0.6 % (0.0-1.0); %Eosinophils 2.7 % (0.0-10.0); %Lymphocytes 11.7 % (21.0-51.0); %Monocytes 11.4 % (0.0-10.0); %Neutrophils 73.6 % (42.0-75.0); Hemoglobin 10.5 g/dL (14.0-18.0); Mean Corpuscular HGB CONC 31.7 g/dL (32.0-36.0); Mean Corpuscular Hemoglobin 35.6 pg (27.0-31.0); Mean Platelet Volume 8.3 fL (7.4-10.4); Platelet Count 426 thou/uL (130-400); RBC Distribution Width 13.8 % (11.5-14.5); Red Blood Cell (RBC) Count 2.95 mill/uL (4.70-6.10); White Blood Cell (WBC) Count 11.4 thou/uL (4.8-10.8)
[2018-05-05 06:14] LABS: Anion Gap 13 mmol/L (10-20); BUN (Urea Nitrogen) 8 mg/dL (8.4-25.7); Calc. Creatinine Clearance 104 mL/min (70-130); Calcium 8.9 mg/dL (7.8-10.44); Carbon Dioxide 29 mmol/L (23-31); Chloride 99 mmol/L (98-107); Estimated GFR-MDRD Greater than 90; Glucose 89 mg/dL (80-115); Sodium 138 mmol/L (136-145)
[2018-05-05] MEDS: Nicotine 21 MG PATCH TD SCH (09:03)
[2018-05-05] MEDS: Enoxaparin Sodium 80 MG/0.8 ML SYRINGE SC SCH ×2 (09:03→20:19)
[2018-05-05 11:24] VITALS: BMI 25.0
[2018-05-05] MEDS ORDERED: Bisacodyl 10 MG SUPP PR PRN (11:53)
[2018-05-05] MEDS ORDERED: Potassium Chloride 20 MEQ in Premix Bag 1 BAG IVPB SCH (12:00)
[2018-05-05] MEDS: Multivitamin W/ Minerals 1 TAB PO SCH (12:55)
[2018-05-05] MEDS: Folic Acid 1 MG TAB PO SCH (12:55)
[2018-05-05] MEDS: Polyethylene Glycol 3350 17 GM Packet PO SCH (12:55)
--- NOTE | 2018-05-05 13:31 | PRG ---
DATE OF SERVICE: 05/05/2018 SUBJECTIVE: Mr. Hawkins is doing well. He states he is passing gas. No bowel movements present. He is still on IV metoprolol. OBJECTIVE: VITAL SIGNS: Blood pressure 149/79, pulse 105, and temperature 98.1. LUNGS: Clear to auscultation. HEART: Regular rate and rhythm with 2/6 systolic ejection murmur. ABDOMEN: Soft, nontender, nondistended. EXTREMITIES: No edema. IMPRESSION: 1. Severe aortic stenosis. 2. Atrial flutter status post ablation. 3. Alcohol abuse. 4. Tobacco abuse. 5. Recent hip surgery. 6. Ileus. RECOMMENDATIONS: At this point, we will recommend adding p.o. metoprolol 25 mg p.o. b.i.d. once he is taking p.o. Continue to use IV Cardizem. From my standpoint, I will be out of the office in the next 3 days. If any further questions, you can consult with Dr. Joey Palomo who will be on-call this weekend. Otherwise, plan to follow up with Mr. Hawkins as an outpatient. Job ID: [id number]
--- NOTE | 2018-05-05 14:06 | PDOC.PN ---
- Subjective Encounter Start Date: 05/05/18 Encounter Start Time: 07:00 Pt seen for followup re: aspiration pneumonia. Says he feels well. - Objective Resuscitation Status - Order Detail: 05/04/18 17:06 Resuscitation Status Routine Resuscitation Status: FULL: Full Resuscitation Discussed with: Family MAR Reviewed: Yes Vital Signs & Weight: Vital Signs (12 hours) Temp Pulse Resp BP Pulse Ox 05/05/18 12:17 98.1 F 105 H 22 H 149/79 H 92 L 05/05/18 08:58 98.2 F 102 H 22 H 130/77 94 L 05/05/18 04:00 98.7 F 96 19 144/68 H 92 L Weight Admit Weight 143 lb 8.335 oz Weight 169 lb 5.04 oz Most Recent Monitor Data Heart Rate from ECG 92 NIBP 121/89 NIBP BP-Mean 99 Respiration from ECG 24 SpO2 100 I&O: 05/04/18 05/05/18 05/06/18 06:59 06:59 06:59 Intake Total 1740 1340 Output Total 575 2550 Balance 1165 -1210 Result Diagrams: 05/05/18 04:57 05/05/18 04:57 Additional Labs: Labs reviewed by me Phys Exam - Physical Examination Constitutional: NAD HEENT: moist MMs Neck: supple Respiratory: clear to auscultation bilateral Decreased air entry sergio bases Cardiovascular: RRR Gastrointestinal: soft Neurological: moves all 4 limbs Psychiatric: normal affect Dx/Plan (1) Aspiration pneumonitis Code(s): J69.0 - PNEUMONITIS DUE TO INHALATION OF FOOD AND VOMIT Status: Acute Comment: continue antibiotics as below (2) Closed left hip fracture Code(s): S72.002A - FRACTURE OF UNSP PART OF NECK OF LEFT FEMUR, INIT Status: Acute Comment: s/p total hip replacement on 04/26/18 (3) Aortic stenosis, severe Code(s): I35.0 - NONRHEUMATIC AORTIC (VALVE) STENOSIS Status: Chronic (4) Atrial fibrillation with RVR Code(s): I48.91 - UNSPECIFIED ATRIAL FIBRILLATION Status: Resolved Comment: s/p cardioversion - Plan * . Review of Systems - Review of Systems Respiratory: Cough, Dry. negative: Shortness of Breath, Hemoptysis, SOB with Excertion, Pleuritic Pain, Sputum, Wheezing Cardiovascular: negative: chest pain, palpitations, orthopnea, paroxysmal nocturnal dyspnea, edema, light headedness - Medications/Allergies Allergies/Adverse Reactions: Allergies Allergy/AdvReac Type Severity Reaction Status Date / Time No Known Allergies Allergy Verified 04/23/18 16:21 Medications: Current Medications Acetaminophen (Tylenol) 650 mg PO Q6H PRN PRN Reason: Fever > 101 Last Admin: 04/27/18 08:46 Dose: 650 mg Atorvastatin Calcium (Lipitor) 40 mg PO HS [facility] Last Admin: 05/04/18 21:08 Dose: Not Given Bisacodyl (Dulcolax) 10 mg [place] DAILYPRN PRN PRN Reason: Constipation Cephalexin (Keflex) 250 mg PO Q6HR [facility] Stop: 05/08/18 12:01 Last Admin: 05/05/18 12:56 Dose: Not Given Enoxaparin Sodium (Lovenox) 80 mg SC 0900,2100 [facility] Last Admin: 05/05/18 09:03 Dose: 80 mg Folic Acid (Folvite) 1 mg PO DAILY [facility] Last Admin: 05/05/18 12:55 Dose: Not Given Cefazolin Sodium/Dextrose (Ancef) 50 mls @ 100 mls/hr IVPB 0200,1000,1800 [facility] Last Admin: 05/05/18 09:04 Dose: 50 mls Potassium Chloride 20 meq/ (Device) 100 mls @ 50 mls/hr IVPB NOW [facility] Stop: 05/05/18 15:00 Last Admin: 05/05/18 12:51 Dose: 100 mls Iron/Minerals/Multivitamins (Theragran M) 1 tab PO DAILY [facility] Last Admin: 05/05/18 12:55 Dose: Not Given Metoprolol Tartrate (Lopressor) 5 mg IVP Q6HR [facility] Last Admin: 05/05/18 13:48 Dose: 5 mg Nicotine (Nicoderm Patch) 21 mg TD DAILY [facility] Last Admin: 05/05/18 09:03 Dose: 21 mg Ondansetron HCl (Zofran) 4 mg IVP Q6H PRN PRN Reason: Nausea/Vomiting Last Admin: 05/01/18 21:56 Dose: 4 mg Polyethylene Glycol (Miralax) 17 gm PO DAILY [facility] Last Admin: 05/05/18 12:55 Dose: Not Given Promethazine HCl (Phenergan) 12.5 mg IM Q6H PRN PRN Reason: Nausea Last Admin: 05/02/18 01:14 Dose: 12.5 mg Sodium Chloride (Flush - Normal Saline) 10 ml IVF Q12HR [facility] Last Admin: 05/05/18 09:04 Dose: 10 ml Sodium Chloride (Flush - Normal Saline) 10 ml IVF PRN PRN PRN Reason: Saline Flush Last Admin: 05/02/18 05:08 Dose: 10 ml Thiamine HCl (Thiamine) 100 mg PO DAILY [facility] Last Admin: 05/05/18 12:55 Dose: Not Given Tramadol HCl (Ultram) 50 mg PO Q4H PRN PRN Reason: Mild-Moderate Pain (1-5) Last Admin: 04/30/18 14:20 Dose: 50 mg Tramadol HCl (Ultram) 100 mg PO Q4H PRN PRN Reason: Mild-Moderate Pain (1-5)
[2018-05-05] MEDS: Atorvastatin Calcium 40 MG TAB PO SCH (20:18)
[2018-05-06] MEDS: Cephalexin 250 MG CAP PO SCH ×4 (05:24→23:09)
[2018-05-06] MEDS: Metoprolol Tartrate 5 MG/5 ML VIAL IVP SCH ×4 (05:24→23:15)
[2018-05-06] MEDS: Folic Acid 1 MG TAB PO SCH (09:08)
[2018-05-06] MEDS: Multivitamin W/ Minerals 1 TAB PO SCH (09:08)
[2018-05-06] MEDS: Nicotine 21 MG PATCH TD SCH (09:09)
[2018-05-06] MEDS: Polyethylene Glycol 3350 17 GM Packet PO SCH (09:10)
[2018-05-06] MEDS: Enoxaparin Sodium 80 MG/0.8 ML SYRINGE SC SCH ×2 (09:10→23:04)
--- NOTE | 2018-05-06 11:07 | PDOC.PN ---
- Subjective Encounter Start Date: 05/06/18 Encounter Start Time: 07:00 Pt seen for followup re: aspiration pneumonitis. On and off cough. Pt is NPO. - Objective Resuscitation Status - Order Detail: 05/04/18 17:06 Resuscitation Status Routine Resuscitation Status: FULL: Full Resuscitation Discussed with: Family MAR Reviewed: Yes Vital Signs & Weight: Vital Signs (12 hours) Temp Pulse Resp BP BP BP Pulse Ox 05/06/18 08:54 98.2 F 104 H 18 153/81 H 94 L 05/06/18 04:00 97.6 F 109 H 20 165/106 H 95 05/05/18 23:51 102 H 186/90 H Weight Admit Weight 143 lb 8.335 oz Weight 169 lb 3.2 oz Most Recent Monitor Data Heart Rate from ECG 92 NIBP 121/89 NIBP BP-Mean 99 Respiration from ECG 24 SpO2 100 I&O: 05/05/18 05/06/18 05/07/18 06:59 06:59 06:59 Intake Total 1340 1005 Output Total 2550 725 Balance -1210 280 Result Diagrams: 05/05/18 04:57 05/05/18 04:57 EKG Reviewed by me: Yes (Tele: NSR) Phys Exam - Physical Examination Constitutional: NAD HEENT: moist MMs Neck: supple Bibasal crackles Cardiovascular: RRR Gastrointestinal: soft Neurological: moves all 4 limbs Psychiatric: normal affect Dx/Plan (1) Aspiration pneumonitis Code(s): J69.0 - PNEUMONITIS DUE TO INHALATION OF FOOD AND VOMIT Status: Acute Comment: continue cephalexin (2) Closed left hip fracture Code(s): S72.002A - FRACTURE OF UNSP PART OF NECK OF LEFT FEMUR, INIT Status: Acute Comment: s/p total hip replacement (3) Aortic stenosis, severe Code(s): I35.0 - NONRHEUMATIC AORTIC (VALVE) STENOSIS Status: Chronic Comment: stable (4) Atrial fibrillation with RVR Code(s): I48.91 - UNSPECIFIED ATRIAL FIBRILLATION Status: Resolved Comment: s/p cardioversion - Plan * . Review of Systems - Review of Systems Constitutional: negative: fever, chills, sweats, weakness, malaise Respiratory: Cough, Sputum. negative: Dry, Shortness of Breath, Hemoptysis, SOB with Excertion, Pleuritic Pain, Wheezing - Medications/Allergies Allergies/Adverse Reactions: Allergies Allergy/AdvReac Type Severity Reaction Status Date / Time No Known Allergies Allergy Verified 04/23/18 16:21 Medications: Current Medications Acetaminophen (Tylenol) 650 mg PO Q6H PRN PRN Reason: Fever > 101 Last Admin: 04/27/18 08:46 Dose: 650 mg Atorvastatin Calcium (Lipitor) 40 mg PO HS [facility] Last Admin: 05/05/18 20:18 Dose: 40 mg Bisacodyl (Dulcolax) 10 mg [place] DAILYPRN PRN PRN Reason: Constipation Cephalexin (Keflex) 250 mg PO Q6HR [facility] Stop: 05/08/18 12:01 Last Admin: 05/06/18 05:24 Dose: 250 mg Enoxaparin Sodium (Lovenox) 80 mg SC 0900,2100 [facility] Last Admin: 05/06/18 09:10 Dose: 80 mg Folic Acid (Folvite) 1 mg PO DAILY [facility] Last Admin: 05/06/18 09:08 Dose: 1 mg Cefazolin Sodium/Dextrose (Ancef) 50 mls @ 100 mls/hr IVPB 0200,1000,1800 [facility] Last Admin: 05/06/18 10:50 Dose: Not Given Iron/Minerals/Multivitamins (Theragran M) 1 tab PO DAILY [facility] Last Admin: 05/06/18 09:08 Dose: 1 tab Metoprolol Tartrate (Lopressor) 5 mg IVP Q6HR [facility] Last Admin: 05/06/18 05:24 Dose: 5 mg Nicotine (Nicoderm Patch) 21 mg TD DAILY [facility] Last Admin: 05/06/18 09:09 Dose: 21 mg Ondansetron HCl (Zofran) 4 mg IVP Q6H PRN PRN Reason: Nausea/Vomiting Last Admin: 05/01/18 21:56 Dose: 4 mg Polyethylene Glycol (Miralax) 17 gm PO DAILY [facility] Last Admin: 05/06/18 09:10 Dose: Not Given Promethazine HCl (Phenergan) 12.5 mg IM Q6H PRN PRN Reason: Nausea Last Admin: 05/02/18 01:14 Dose: 12.5 mg Sodium Chloride (Flush - Normal Saline) 10 ml IVF Q12HR [facility] Last Admin: 05/06/18 09:08 Dose: 10 ml Sodium Chloride (Flush - Normal Saline) 10 ml IVF PRN PRN PRN Reason: Saline Flush Last Admin: 05/02/18 05:08 Dose: 10 ml Thiamine HCl (Thiamine) 100 mg PO DAILY [facility] Last Admin: 05/06/18 09:08 Dose: 100 mg Tramadol HCl (Ultram) 50 mg PO Q4H PRN PRN Reason: Mild-Moderate Pain (1-5) Last Admin: 04/30/18 14:20 Dose: 50 mg Tramadol HCl (Ultram) 100 mg PO Q4H PRN PRN Reason: Mild-Moderate Pain (1-5)
[2018-05-06 11:26] LABS: #Basophils 0.1 thou/uL (0.0-0.2); #Eosinphils 0.3 thou/uL (0.0-0.7); #Lymphocytes 1.3 thou/uL (1.20-3.40); #Monocytes 1.2 thou/uL (0.11-0.59); #Neutrophils 8.8 thou/uL (1.40-6.50); %Basophils 0.9 % (0.0-1.0); %Eosinophils 2.4 % (0.0-10.0); %Lymphocytes 11.2 % (21.0-51.0); %Monocytes 10.3 % (0.0-10.0); %Neutrophils 75.3 % (42.0-75.0); Hemoglobin 11.6 g/dL (14.0-18.0); Mean Corpuscular HGB CONC 32.7 g/dL (32.0-36.0); Mean Corpuscular Hemoglobin 36.3 pg (27.0-31.0); Mean Platelet Volume 7.6 fL (7.4-10.4); Platelet Count 407 thou/uL (130-400); RBC Distribution Width 13.4 % (11.5-14.5); White Blood Cell (WBC) Count 11.7 thou/uL (4.8-10.8)
[2018-05-06 11:54] LABS: Anion Gap 10 mmol/L (10-20); BUN (Urea Nitrogen) 7 mg/dL (8.4-25.7); Calc. Creatinine Clearance 111 mL/min (70-130); Carbon Dioxide 32 mmol/L (23-31); Chloride 97 mmol/L (98-107); Estimated GFR-MDRD Greater than 90; Glucose 105 mg/dL (80-115); Potassium 3.3 mmol/L (3.5-5.1); Sodium 136 mmol/L (136-145)
[2018-05-06] MEDS: Atorvastatin Calcium 40 MG TAB PO SCH (23:04)
[2018-05-07 04:28] LABS: #Basophils 0.1 thou/uL (0.0-0.2); #Eosinphils 0.2 thou/uL (0.0-0.7); #Lymphocytes 1.3 thou/uL (1.20-3.40); #Monocytes 1.3 thou/uL (0.11-0.59); #Neutrophils 8.6 thou/uL (1.40-6.50); %Basophils 0.4 % (0.0-1.0); %Lymphocytes 11.1 % (21.0-51.0); %Monocytes 11.1 % (0.0-10.0); %Neutrophils 75.3 % (42.0-75.0); Hemoglobin 10.6 g/dL (14.0-18.0); Mean Corpuscular HGB CONC 32.1 g/dL (32.0-36.0); Mean Platelet Volume 7.9 fL (7.4-10.4); Platelet Count 361 thou/uL (130-400); RBC Distribution Width 13.6 % (11.5-14.5); Red Blood Cell (RBC) Count 2.94 mill/uL (4.70-6.10); White Blood Cell (WBC) Count 11.5 thou/uL (4.8-10.8)
[2018-05-07 04:53] LABS: Anion Gap 9 mmol/L (10-20); BUN (Urea Nitrogen) 7 mg/dL (8.4-25.7); Calc. Creatinine Clearance 113 mL/min (70-130); Calcium 8.8 mg/dL (7.8-10.44); Carbon Dioxide 34 mmol/L (23-31); Chloride 98 mmol/L (98-107); Estimated GFR-MDRD Greater than 90; Glucose 101 mg/dL (80-115); Potassium 3.2 mmol/L (3.5-5.1); Sodium 138 mmol/L (136-145)
[2018-05-07] MEDS: Metoprolol Tartrate 5 MG/5 ML VIAL IVP SCH ×2 (06:13→13:47)
[2018-05-07] MEDS: Cephalexin 250 MG CAP PO SCH ×4 (06:14→23:18)
[2018-05-07] MEDS: Folic Acid 1 MG TAB PO SCH (09:08)
[2018-05-07] MEDS: Enoxaparin Sodium 80 MG/0.8 ML SYRINGE SC SCH ×2 (09:08→19:43)
[2018-05-07] MEDS: Multivitamin W/ Minerals 1 TAB PO SCH (09:08)
[2018-05-07] MEDS: Nicotine 21 MG PATCH TD SCH (09:09)
[2018-05-07] MEDS: Polyethylene Glycol 3350 17 GM Packet PO SCH (09:13)
--- NOTE | 2018-05-07 12:41 | PDOC.PN ---
- Subjective Encounter Start Date: 05/07/18 Encounter Start Time: 08:00 Pt seen for followup re: aspiration pneumonitis. Denies chest pain, shortness of breath, fevers or chills. - Objective Resuscitation Status - Order Detail: 05/04/18 17:06 Resuscitation Status Routine Resuscitation Status: FULL: Full Resuscitation Discussed with: Family MAR Reviewed: Yes Vital Signs & Weight: Vital Signs (12 hours) Temp Pulse Pulse Pulse Pulse Pulse Resp 05/07/18 11:05 97.9 F 102 H 18 05/07/18 09:50 126 H 129 H 122 H 108 H 05/07/18 07:25 98.2 F 107 H 20 05/07/18 04:00 98.5 F 107 H 20 BP BP Pulse Ox Pulse Ox Pulse Ox Pulse Ox Pulse Ox 05/07/18 11:05 151/87 H 98 05/07/18 09:50 92 L 92 L 96 93 L 05/07/18 07:25 151/83 H 94 L 05/07/18 04:00 143/79 H 98 Weight Admit Weight 143 lb 8.335 oz Weight 169 lb 3.2 oz Most Recent Monitor Data Heart Rate from ECG 92 NIBP 121/89 NIBP BP-Mean 99 Respiration from ECG 24 SpO2 100 I&O: 05/06/18 05/07/18 05/08/18 06:59 06:59 06:59 Intake Total 1005 827 Output Total 725 750 Balance 280 77 Result Diagrams: 05/07/18 04:20 05/07/18 04:20 Additional Labs: labs reviewed by me Phys Exam - Physical Examination Constitutional: NAD HEENT: moist MMs Neck: supple Respiratory: clear to auscultation bilateral Cardiovascular: RRR Gastrointestinal: soft Neurological: moves all 4 limbs Psychiatric: normal affect Dx/Plan (1) Aspiration pneumonitis Code(s): J69.0 - PNEUMONITIS DUE TO INHALATION OF FOOD AND VOMIT Status: Acute Comment: continue antibiotics as below (2) Closed left hip fracture Code(s): S72.002A - FRACTURE OF UNSP PART OF NECK OF LEFT FEMUR, INIT Status: Acute Comment: s/p THR on Apr 26 (3) Aortic stenosis, severe Code(s): I35.0 - NONRHEUMATIC AORTIC (VALVE) STENOSIS Status: Chronic Comment: stable (4) Atrial fibrillation with RVR Code(s): I48.91 - UNSPECIFIED ATRIAL FIBRILLATION Status: Resolved Comment: s/p cardioversion - Plan * . Review of Systems - Review of Systems Respiratory: negative: Cough, Shortness of Breath, SOB with Excertion, Pleuritic Pain, Wheezing Cardiovascular: negative: chest pain, palpitations, orthopnea, paroxysmal nocturnal dyspnea, edema, light headedness - Medications/Allergies Allergies/Adverse Reactions: Allergies Allergy/AdvReac Type Severity Reaction Status Date / Time No Known Allergies Allergy Verified 04/23/18 16:21 Medications: Current Medications Acetaminophen (Tylenol) 650 mg PO Q6H PRN PRN Reason: Fever > 101 Last Admin: 04/27/18 08:46 Dose: 650 mg Atorvastatin Calcium (Lipitor) 40 mg PO HS [facility] Last Admin: 05/06/18 23:04 Dose: 40 mg Bisacodyl (Dulcolax) 10 mg [place] DAILYPRN PRN PRN Reason: Constipation Cephalexin (Keflex) 250 mg PO Q6HR [facility] Stop: 05/08/18 12:01 Last Admin: 05/07/18 11:54 Dose: 250 mg Enoxaparin Sodium (Lovenox) 80 mg SC 0900,2100 [facility] Last Admin: 05/07/18 09:08 Dose: 80 mg Folic Acid (Folvite) 1 mg PO DAILY [facility] Last Admin: 05/07/18 09:08 Dose: 1 mg Cefazolin Sodium/Dextrose (Ancef) 50 mls @ 100 mls/hr IVPB 0200,1000,1800 [facility] Last Admin: 05/07/18 09:05 Dose: Not Given Iron/Minerals/Multivitamins (Theragran M) 1 tab PO DAILY [facility] Last Admin: 05/07/18 09:08 Dose: 1 tab Metoprolol Tartrate (Lopressor) 5 mg IVP Q6HR [facility] Last Admin: 05/07/18 06:13 Dose: Not Given Nicotine (Nicoderm Patch) 21 mg TD DAILY [facility] Last Admin: 05/07/18 09:09 Dose: 21 mg Ondansetron HCl (Zofran) 4 mg IVP Q6H PRN PRN Reason: Nausea/Vomiting Last Admin: 05/01/18 21:56 Dose: 4 mg Polyethylene Glycol (Miralax) 17 gm PO DAILY [facility] Last Admin: 05/07/18 09:13 Dose: Not Given Potassium Chloride (K-Dur) 40 meq PO ONE [facility] Promethazine HCl (Phenergan) 12.5 mg IM Q6H PRN PRN Reason: Nausea Last Admin: 05/02/18 01:14 Dose: 12.5 mg Sodium Chloride (Flush - Normal Saline) 10 ml IVF Q12HR [facility] Last Admin: 05/07/18 09:11 Dose: 10 ml Sodium Chloride (Flush - Normal Saline) 10 ml IVF PRN PRN PRN Reason: Saline Flush Last Admin: 05/02/18 05:08 Dose: 10 ml Thiamine HCl (Thiamine) 100 mg PO DAILY [facility] Last Admin: 05/07/18 09:08 Dose: 100 mg Tramadol HCl (Ultram) 50 mg PO Q4H PRN PRN Reason: Mild-Moderate Pain (1-5) Last Admin: 04/30/18 14:20 Dose: 50 mg Tramadol HCl (Ultram) 100 mg PO Q4H PRN PRN Reason: Mild-Moderate Pain (1-5)
[2018-05-07] MEDS ORDERED: Potassium Chloride 20 MEQ TAB PO SCH (13:15)
--- NOTE | 2018-05-07 15:47 | RAD ---
PORTABLE AP CHEST X-RAY: 05/07/2018 HISTORY: Bilateral pleural effusions. Follow-up evaluation. COMPARISON: 05/03/2018 FINDINGS: Again noted are moderately large bilateral pleural effusions and associated parenchymal changes at ea ch lung base, which may represent atelectasis. However, bibasilar pneumonia cannot be entirely exclu ded. The pleural effusions on each side do appear larger compared to the prior exam. The right card iac border is partially obscured, but the cardiac silhouette is at the upper limits of normal to bord devyn enlarged. There is mild pulmonary vascular congestion. Vascular calcification is seen in the thoracic aorta. IMPRESSION: 1. Bilateral pleural and parenchymal lung changes, likely related to moderate bilateral pleural effu sions and associated atelectasis. Superimposed infiltrates related to pneumonia cannot be entirely e xcluded. 2. Mild pulmonary vascular congestion. POS: [facility]
[2018-05-07] MEDS: Atorvastatin Calcium 40 MG TAB PO SCH (19:38)
[2018-05-07] MEDS: Metoprolol Tartrate 25 MG TAB PO SCH (19:38)
[2018-05-07] MEDS: traMADol HCl 50 MG TAB PO PRN (20:37)
[2018-05-07] MEDS: Acetaminophen 325 MG TAB PO PRN (20:37)
[2018-05-08 04:41] LABS: #Basophils 0.1 thou/uL (0.0-0.2); #Eosinphils 0.3 thou/uL (0.0-0.7); #Lymphocytes 1.1 thou/uL (1.20-3.40); #Monocytes 1.3 thou/uL (0.11-0.59); #Neutrophils 7.5 thou/uL (1.40-6.50); %Basophils 0.7 % (0.0-1.0); %Eosinophils 2.6 % (0.0-10.0); %Lymphocytes 11.1 % (21.0-51.0); %Monocytes 12.4 % (0.0-10.0); %Neutrophils 73.2 % (42.0-75.0); Hemoglobin 10.6 g/dL (14.0-18.0); Mean Corpuscular HGB CONC 32.4 g/dL (32.0-36.0); Mean Corpuscular Hemoglobin 36.5 pg (27.0-31.0); Mean Platelet Volume 8.7 fL (7.4-10.4); Platelet Count 337 thou/uL (130-400); RBC Distribution Width 13.5 % (11.5-14.5); Red Blood Cell (RBC) Count 2.91 mill/uL (4.70-6.10); White Blood Cell (WBC) Count 10.2 thou/uL (4.8-10.8)
[2018-05-08 05:00] LABS: Anion Gap 12 mmol/L (10-20); BUN (Urea Nitrogen) 7 mg/dL (8.4-25.7); Calc. Creatinine Clearance 110 mL/min (70-130); Calcium 8.8 mg/dL (7.8-10.44); Carbon Dioxide 32 mmol/L (23-31); Chloride 96 mmol/L (98-107); Estimated GFR-MDRD Greater than 90; Glucose 96 mg/dL (80-115); Potassium 3.6 mmol/L (3.5-5.1); Sodium 136 mmol/L (136-145)
[2018-05-08] MEDS: Cephalexin 250 MG CAP PO SCH ×2 (05:35→11:43)
[2018-05-08] MEDS: Metoprolol Tartrate 25 MG TAB PO SCH (08:18)
[2018-05-08] MEDS: Folic Acid 1 MG TAB PO SCH (08:18)
[2018-05-08] MEDS: Multivitamin W/ Minerals 1 TAB PO SCH (08:18)
[2018-05-08] MEDS: Polyethylene Glycol 3350 17 GM Packet PO SCH (08:20)
[2018-05-08] MEDS: Nicotine 21 MG PATCH TD SCH (08:22)
[2018-05-08] MEDS: Enoxaparin Sodium 80 MG/0.8 ML SYRINGE SC SCH (11:35)
[2018-05-08] MEDS: traMADol HCl 50 MG TAB PO PRN (11:52)
[2018-05-08 16:48] VITALS: BP 152/83; TEMP 97.7
--- NOTE | 2018-05-08 18:42 | DIS ---
DATE OF ADMISSION: 04/23/2018 DATE OF DISCHARGE: 05/08/2018 PRIMARY CARE PROVIDER: Lynn Ramirez PA-C Please note that this is the second discharge summary being dictated on this patient for this hospitalization. First discharge summary was dictated by Dr. Jeff Barnes on May 01, 2018. At that time, the patient was awaiting a discharge to inpatient rehab. Subsequently, the discharge was held due to constipation with nausea and vomiting as well as the difficulty swallowing. DISCHARGE DIAGNOSES: 1. Closed fracture of the left hip status post replacement. 2. Sustained atrial flutter status post ablation. 3. Diastolic congestive heart failure with severe aortic stenosis. 4. Alcohol abuse. 5. Tobacco abuse. CONDITION OF PATIENT ON THE DAY OF DISCHARGE: Stable. I assessed Mr. Hawkins on the day of discharge. He denies any chest pain or shortness of breath. Vital signs are stable. S1 and S2 are heard, regular. Lungs are clear to auscultation bilaterally. DISCHARGE MEDICATIONS: In addition to discharge medications as dictated by Dr. Barnes on discharge summary dated May 01, 2018, Mr. Hawkins is being discharged on; 1. MiraLAX 17 g daily. 2. The Lopressor dose is changed to 25 mg 2 times a day. 3. Please note that apixaban should be stopped after 1 month. HOSPITAL COURSE: As dictated by Dr. Barnes on discharge summary dated May 01, 2018. Subsequently, the patient had nausea and vomiting. CT scan of the abdomen and pelvis showed large bilateral pleural effusions with bibasilar atelectasis, moderate amount of stool throughout the colon without signs of obstruction. There were changes suggesting proctitis. He also had anasarca type changes of the subcutaneous tissue. He was evaluated by Speech Therapy and was found to be aspirating. He was kept n.p.o. While he was n.p.o., he received Lovenox injections for anticoagulation. Cardiology recommends Eliquis for a total of 1 month. Eliquis should then be stopped. He was reassessed by Speech Therapy. Family wanted him to be fed, and were accepting of the risk of aspiration. He has been accepted for inpatient rehab at [facility]. He is being discharged to [facility]. On the day of discharge, his white count 10,200, hemoglobin 10.6, and platelet count 337,000. Sodium 136, potassium 3.6, and creatinine 0.68. Many thanks for allowing me to participate in your patient's care. Please feel free to contact me with any questions or concerns. DISCHARGE DESTINATION: [facility]. TOTAL AMOUNT OF TIME SPENT COORDINATING THIS DISCHARGE: 32 minutes. Job ID: [id number]
== END 2018-05-08 17:59 | DRG 469 ==
LOC: ERS 12:18 → IMCU/EMU 14:20 → 2NO 04-28 13:11 → SURG A 05-06 19:17
PROVIDERS: ADMIT Hospitalist; ATTEND Hospitalist
PROC: 02583ZZ Destruction of Conduction Mechanism, Percutaneous Approach (ICD-10-PCS; principal; 2018-04-25)
PROC: 02K83ZZ Map Conduction Mechanism, Percutaneous Approach (ICD-10-PCS; 2018-04-25)
PROC: 4A023FZ Measurement of Cardiac Rhythm, Percutaneous Approach (ICD-10-PCS; 2018-04-25)
PROC: 4A0234Z Measurement of Cardiac Electrical Activity, Percutaneous Approach (ICD-10-PCS; 2018-04-25)
PROC: 0SRS0JA Replacement of Left Hip Joint, Femoral Surface with Synthetic Substitute, Uncemented, Open Approach (ICD-10-PCS; 2018-04-26)
DX: S72.012A Unspecified intracapsular fracture of left femur, initial encounter for closed fracture (principal); A41.9 Sepsis, unspecified organism; J96.90 Respiratory failure, unspecified, unspecified whether with hypoxia or hypercapnia; J69.0 Pneumonitis due to inhalation of food and vomit; I48.3 Typical atrial flutter; I47.1 Supraventricular tachycardia; I42.6 Alcoholic cardiomyopathy; G93.40 Encephalopathy, unspecified; I31.3 Pericardial effusion (noninflammatory); I50.30 Unspecified diastolic (congestive) heart failure; F10.239 Alcohol dependence with withdrawal, unspecified; K56.7 Ileus, unspecified; I48.91 Unspecified atrial fibrillation; R13.10 Dysphagia, unspecified; I08.0 Rheumatic disorders of both mitral and aortic valves; Z66 Do not resuscitate; F17.210 Nicotine dependence, cigarettes, uncomplicated; K59.00 Constipation, unspecified; D64.9 Anemia, unspecified; K62.89 Other specified diseases of anus and rectum; J44.9 Chronic obstructive pulmonary disease, unspecified; W01.0XXA Fall on same level from slipping, tripping and stumbling without subsequent striking against object, initial encounter
CPT/HCPCS: 36415; 70450; 71045; 71275; 72170; 74018; 74177; 74230; 76942; 80048; 80053; 80061; 80202; 81001; 82550; 82565; 82746; 83605; 83735; 83880; 84100; 84165; 84425; 84443; 84484; 85025; 85379; 85610; 85730; 86850; 86900; 86901; 87040; 87086; 87804; 92960; 93005; 93010; 93306; 93312; 93613; 93623; 93653; 96365; 96366; 96374; 96375; C1730; C1769; J0131; J0153; J0690; J1160; J1265; J1644; J1650; J1885; J1940; J1956; J2001; J2270; J2370; J2405; J2543; J2550; J2704; J3010; J3370; J3480; J7050; Q9966; S0028

== ENCOUNTER 2018-05-08 20:29 | Observation (INO) | payer MEDICARE ==
[~2018-05-08 20:29] MED LIST: ISOVUE-370 76%-LOCM 1 ML ONE
[2018-05-08 20:57] LABS: #Eosinphils 0.2 thou/uL (0.0-0.7); #Lymphocytes 0.9 thou/uL (1.20-3.40); #Monocytes 1.2 thou/uL (0.11-0.59); %Basophils 0.4 % (0.0-1.0); %Eosinophils 1.6 % (0.0-10.0); %Lymphocytes 7.6 % (21.0-51.0); %Monocytes 10.4 % (0.0-10.0); Hemoglobin 11.6 g/dL (14.0-18.0); Mean Corpuscular HGB CONC 32.7 g/dL (32.0-36.0); Mean Corpuscular Hemoglobin 37.4 pg (27.0-31.0); Mean Platelet Volume 8.2 fL (7.4-10.4); Platelet Count 332 thou/uL (130-400); RBC Distribution Width 13.7 % (11.5-14.5); Red Blood Cell (RBC) Count 3.12 mill/uL (4.70-6.10); White Blood Cell (WBC) Count 11.2 thou/uL (4.8-10.8)
--- NOTE | 2018-05-08 21:09 | RAD ---
CHEST ONE VIEW: INDICATIONS: Shortness of breath. Hypoxia. COMPARISON: 05/07/2018 FINDINGS: The cardiomegaly, pulmonary vascular congestion, and central edema pattern has worsened. There are w orsening bilateral pleural effusions. No pneumothorax is evident. IMPRESSION: Worsening congestive heart failure. POS: [facility]
[2018-05-08 21:16] LABS: ALT (SGPT) Less than 7 U/L (8-55); AST (SGOT) 23 U/L (5-34); Albumin 3.1 g/dL (3.4-4.8); Alkaline Phosphatase 95 U/L (40-150); Anion Gap 13 mmol/L (10-20); BUN (Urea Nitrogen) 7 mg/dL (8.4-25.7); Bilirubin, Total 0.5 mg/dL (0.2-1.2); Calc. Creatinine Clearance 0 mL/min (70-130); Calcium 9.1 mg/dL (7.8-10.44); Carbon Dioxide 35 mmol/L (23-31); Chloride 93 mmol/L (98-107); Estimated GFR-MDRD Greater than 90; Globulin 3.2 g/dL (2.4-3.5); Glucose 135 mg/dL (80-115); Potassium 4.1 mmol/L (3.5-5.1); Protein, Total 6.3 g/dL (5.8-8.1); Sodium 137 mmol/L (136-145)
--- NOTE | 2018-05-08 21:51 | CT ---
CTA THORAX UTILIZING IV CONTRAST WITH 3D REFORMATTED IMAGING: INDICATIONS: Shortness of breath. COMPARISON: 04/23/2018 FINDINGS: No central or segment pulmonary embolus is evident. There are prominent bilateral pleural effusions and bibasilar atelectasis. There is moderate cardiomegaly. There are prominent mitral annular calci fications. There are scattered coronary artery and thoracic aortic calcifications. The visualized u pper abdomen demonstrates small cysts within the superior pole, right kidney. There is a calcified g ranuloma in the right hepatic lobe. There are stable compression abnormalities involving the superior aspect of T11 and T12. IMPRESSION: 1. Findings of congestive heart failure. 2. No central or segment pulmonary embolus. POS: [facility]
[2018-05-08] MEDS ORDERED: Nitroglycerin 2% Ointment 1 INCH/1 GM Packet ONE (22:02)
[2018-05-08] MEDS ORDERED: methylPREDNISolone Sod Succ/PF 125 MG/2 ML VIAL ONE (22:02)
[2018-05-08] MEDS ORDERED: Furosemide 40 MG/4 ML VIAL ONE (22:02)
[2018-05-09 00:09] LABS: Troponin I 0.042 ng/mL (< 0.028)
[2018-05-09] MEDS ORDERED: hydrALAZINE 20 MG/ML VIAL SLOW IVP PRN (15:34)
[2018-05-09] MEDS ORDERED: traMADol HCl 50 MG TAB PO PRN ×2 (15:34)
[2018-05-09] MEDS ORDERED: Ondansetron ODT 4 MG TAB PO PRN (15:34)
[2018-05-09] MEDS ORDERED: Acetaminophen 500 MG TAB PO PRN (15:34)
[2018-05-09] MEDS ORDERED: Ondansetron PF 4 MG/2 ML Vial IVP PRN (15:34)
[2018-05-09] MEDS ORDERED: Benzonatate 100 MG CAP PO PRN (15:34)
[2018-05-09] MEDS ORDERED: Furosemide 40 MG/4 ML VIAL SLOW IVP SCH (15:45)
[2018-05-09] MEDS ORDERED: Furosemide 40 MG/4 ML VIAL ONE (16:17)
[2018-05-09 18:32] VITALS: BMI 25.0
[2018-05-09] MEDS: Mometasone/Formoterol 120 PUFF INHALER INH SCH (18:45)
[2018-05-09] MEDS: Famotidine 20 MG TAB PO SCH (20:19)
[2018-05-09] MEDS: Apixaban 5 MG TAB PO SCH (20:19)
[2018-05-09] MEDS ORDERED: Nicotine 14 MG PATCH TD SCH (21:00)
[2018-05-09] MEDS ORDERED: Atorvastatin Calcium 40 MG TAB PO SCH (21:00)
[2018-05-10] MEDS: Furosemide 40 MG/4 ML VIAL SLOW IVP SCH ×2 (05:33→15:16)
[2018-05-10 06:39] LABS: Anion Gap 12 mmol/L (10-20); BUN (Urea Nitrogen) 11 mg/dL (8.4-25.7); Calc. Creatinine Clearance 98 mL/min (70-130); Carbon Dioxide 35 mmol/L (23-31); Chloride 89 mmol/L (98-107); Estimated GFR-MDRD Greater than 90; Glucose 97 mg/dL (80-115); Magnesium 1.5 mg/dL (1.6-2.6); Potassium 3.4 mmol/L (3.5-5.1); Sodium 133 mmol/L (136-145)
[2018-05-10 06:43] LABS: Eosinophils 1 % (0-10); Hemoglobin 10.6 g/dL (14.0-18.0); Lymphocytes 20 % (21-51); MDiff Complete? YES; Macrocytosis SLIGHT = 6-15 cells (100X) (0-5/hpf); Mean Corpuscular Hemoglobin 35.3 pg (27.0-31.0); Mean Platelet Volume 9.1 fL (7.4-10.4); Monocytes 9 % (0-10); Neutrophil 70 % (42-75); Platelet Count 325 thou/uL (130-400); RBC Distribution Width 13.4 % (11.5-14.5); Red Blood Cell (RBC) Count 2.99 mill/uL (4.70-6.10); White Blood Cell (WBC) Count 10.6 thou/uL (4.8-10.8)
[2018-05-10] MEDS: Mometasone/Formoterol 120 PUFF INHALER INH SCH (07:22)
--- NOTE | 2018-05-10 07:29 | HP ---
PRIMARY CARE PROVIDER: Lynn Ramirez PA-C CHIEF COMPLAINT: Shortness of breath. HISTORY OF PRESENT ILLNESS: This is a 68-year-old male, who presents from [facility] after recent discharge on 05/08/2018 after recent closed fracture of the left hip, status post total hip arthroplasty on the left. The patient also with recent atrial fibrillation, status post cardiac ablation and history of severe aortic stenosis with diastolic heart failure noted on recent 2D transthoracic echocardiogram in early April 2018. The patient was discharged to inpatient rehabilitation to continue focused rehab due to limited mobility status when the patient was noted with mild increased shortness of breath and hypoxia. The patient was evaluated by EMS personnel and placed on transient continuous positive airway pressure and given bronchodilator therapy with DuoNeb. The patient denied any specific fever, chest pain, jaw or left arm discomfort. The patient denies using supplemental oxygen at home prior to this admission. The patient does admit to long-term heavy smoking over 50 years and had a recent pneumonia while hospitalized. The patient was given oxygen supplementation with overall improvement and O2 saturations to the mid 90% range on 2 to 3 L/minute by nasal cannula. In the emergency room, the patient received transdermal nitroglycerin, Solu-Medrol 125 mg IV push, Lasix 40 mg x1 dose and DuoNebs. Chest imaging did show evidence of pulmonary edema and bilateral pleural effusions and CT angiogram of the chest was performed showing no evidence for pulmonary embolus. PAST MEDICAL HISTORY: 1. Closed fracture of the left hip, status post mechanical fall with left total hip arthroplasty. 2. Atrial flutter, status post cardiac ablation. 3. Chronic anticoagulation with Eliquis. 4. Diastolic heart failure with preserved ejection fraction of 55% to 60%. 5. Severe aortic stenosis. 6. Alcohol abuse. 7. Tobacco abuse. PAST SURGICAL HISTORY: 1. Status post left total hip arthroplasty. 2. Status post cardiac ablation. CURRENT MEDICATIONS: 1. Eliquis 5 mg p.o. b.i.d. 2. Lipitor 40 mg p.o. at bedtime. 3. Folic acid 1 mg p.o. daily. 4. Metoprolol tartrate 25 mg p.o. b.i.d. 5. Multivitamin 1 tablet p.o. daily. 6. MiraLAX 17 g p.o. daily. 7. Thiamine 100 mg p.o. daily. 8. Tramadol 50 mg 1 to 2 tablets p.o. q.6 hours p.r.n. pain. ALLERGIES: NO KNOWN DRUG ALLERGIES. FAMILY HISTORY: No inheritable disease per the patient report. SOCIAL HISTORY: The patient smokes up to 1-1/2 pack of cigarettes daily x50 years. Drinks 3 to 4 shots of whiskey daily. No illicit drug use. Retired. Accompanied by his daughter in the emergency department. Minimally ambulatory after left hip fracture with repair. REVIEW OF SYSTEMS: CONSTITUTIONAL: Negative for weight loss or gain, ability to conduct usual activities. SKIN: Negative for rash, itching. EYES: Negative for double vision, pain. ENT/MOUTH: Negative for nose bleeding, neck stiffness, pain, tenderness. CARDIOVASCULAR: Negative for palpitations, dyspnea on exertion, orthopnea. RESPIRATORY: Negative for shortness of breath, wheezing, cough, hemoptysis, fever or night sweats. GASTROINTESTINAL: Negative for poor appetite, abdominal pain, heartburn, nausea, vomiting, constipation, or diarrhea. GENITOURINARY: Negative for urgency, frequency, dysuria, nocturia. MUSCULOSKELETAL: Negative for pain, swelling. NEUROLOGIC/PSYCHIATRIC: Negative for anxiety, depression. ALLERGY/IMMUNOLOGIC: Negative for skin rash, bleeding tendency. Otherwise, negative except as stated per HPI. PHYSICAL EXAMINATION: VITAL SIGNS: On admission; blood pressure 159/88, pulse 104, respiratory rate 16, temperature 97.5 degrees Fahrenheit, and O2 saturation 93% on room air. GENERAL APPEARANCE: This is a 68-year-old male, alert and oriented x3, pleasant, conversant, in no acute distress. HEENT: Pupils are equal, round, and reactive to light and accommodation. Extraocular muscles are intact. No scleral icterus. No conjunctival injection. Nares patent. OP is clear. Teeth in fair repair. NECK: Supple. No cervical adenopathy. No thyromegaly. No carotid bruits. No JVD appreciated. Cervical spine with full active and passive range of motion. No meningeal signs noted. CHEST: Diminished breath sounds in the bases bilaterally. Few scattered basilar crackles. CARDIAC: S1 and S2 with a 2 to 3/6 holosystolic murmur throughout the precordium. ABDOMEN: Rounded, soft, nontender, and nondistended. Bowel sounds are positive in all 4 quadrants. There is no hepatosplenomegaly. No abdominal bruits. No rebound or guarding appreciated. EXTREMITIES: Left femoral brace with lumbar bracing attachment noted. Mild edema of the left thigh. Pulses are palpable distally at the dorsalis pedis, posterior tibial, and popliteal arteries bilaterally. Capillary refill less than 2 seconds. NEUROLOGIC: Cranial nerves II through XII are grossly intact. No focal or lateralizing signs appreciated. PERTINENT LABORATORY AND X-RAY FINDINGS: Sodium 137, potassium 4.1, chloride 93, CO2 of 35, BUN 7, creatinine 0.80, glucose 135, and calcium 9.1. LFTs within normal limits. Troponin I ranged between 0.028, 0.042. BNP 1546, previously noted 485 on 04/23/2018. CBC showed a white blood cell count 11.2, hemoglobin 11.6, hematocrit 35.6, MCV 114, platelet count 332, with 80% neutrophils. CT angiogram of the chest dated 05/08/2018, showed no evidence for pulmonary embolus. Bibasilar pleural effusions noted. Portable chest x-ray dated 05/08/2018, showed bilateral pulmonary edema. EKG dated 05/09/2018, by my interpretation shows a sinus tachycardia, heart rates in the low 100s. Normal R-wave progression noted in the precordial leads. Normal axis. No acute ST-T wave changes appreciated. ASSESSMENT AND PLAN: 1. Acute hypoxic respiratory failure. The patient will be observed on the telemetry unit. I suspect secondary to pulmonary edema in conjunction with chronic obstructive pulmonary disease. We will continue oxygen supplementation to maintain O2 saturation greater than or equal to 90%. Add DuoNeb q.4 hours. Continue oxygen supplementation during observation. The patient may need additional long-term oxygen supplementation after discharge. 2. Acute congestive heart failure, diastolic, suspected. We will initiate Lasix 40 mg IV b.i.d. Recent 2D transthoracic echocardiogram on 04/27/2018, showed preserved ejection fraction of 55% to 60%. Severe aortic stenosis noted. 3. Severe aortic stenosis, suspect the component of patient's presentation. We will continue diuretics as stated previously. Continue telemetry monitoring. 4. Left hip fracture, status post open reduction and internal fixation, stable currently. Continue general pain control. PT for mobilization. 5. Chronic obstructive pulmonary disease. No specific evidence of acute exacerbation. We will continue DuoNeb q.4 hours. Start Dulera 2 puffs b.i.d. 6. Prophylaxis. SCDs while in bed. Pepcid 20 mg p.o. b.i.d. General fall risk precautions. 7. Code status is full. Surrogate medical decision maker is the patient's daughter. Job ID: [id number]
[2018-05-10] MEDS ORDERED: Polyethylene Glycol 3350 17 GM Packet PO SCH (09:00)
[2018-05-10] MEDS ORDERED: Multivitamin W/ Minerals 1 TAB PO SCH (09:00)
[2018-05-10] MEDS ORDERED: Folic Acid 1 MG TAB PO SCH (09:00)
[2018-05-10] MEDS: Apixaban 5 MG TAB PO SCH (09:24)
[2018-05-10] MEDS: Famotidine 20 MG TAB PO SCH (09:24)
[2018-05-10] MEDS ORDERED: Sodium Chloride 0.9% 250 ML IV SCH (11:15)
--- NOTE | 2018-05-10 12:07 | PDOC.PN ---
- Subjective Encounter Start Date: 05/10/18 Encounter Start Time: 09:15 Subjective: feels better, no sob this am -: diuresed well with lasix and became hypotensive -: no chest pain or palp - Objective Resuscitation Status - Order Detail: 05/09/18 11:44 Resuscitation Status Routine Resuscitation Status: FULL: Full Resuscitation MAR Reviewed: Yes Vital Signs & Weight: Vital Signs (12 hours) Temp Pulse Resp BP BP Pulse Ox 05/10/18 11:04 105 H 20 95 05/10/18 08:50 98.2 F 109 H 17 92/50 L 94 L 05/10/18 07:19 98 16 95 05/10/18 03:35 98.1 F 101 H 20 135/77 97 05/10/18 01:34 101 H 16 94 L Weight Weight 164 lb 8 oz I&O: 05/09/18 05/10/18 05/11/18 06:59 06:59 06:59 Intake Total 340 Output Total 1525 Balance -1185 Result Diagrams: 05/10/18 05:52 05/10/18 05:52 Phys Exam - Physical Examination HEENT: PERRLA, moist MMs Neck: no nodes, no JVD Respiratory: no rales rales+ Cardiovascular: RRR, no significant murmur Gastrointestinal: soft, non-tender, positive bowel sounds Musculoskeletal: no edema, pulses present Neurological: non-focal, moves all 4 limbs Dx/Plan (1) CHF (congestive heart failure) Code(s): I50.9 - HEART FAILURE, UNSPECIFIED Status: Acute Qualifiers: Heart failure type: diastolic Heart failure chronicity: acute on chronic Qualified Code(s): I50.33 - Acute on chronic diastolic (congestive) heart failure Comment: stage B (2) Afib Code(s): I48.91 - UNSPECIFIED ATRIAL FIBRILLATION Status: Chronic Qualifiers: Atrial fibrillation type: paroxysmal Qualified Code(s): I48.0 - Paroxysmal atrial fibrillation (3) Dyslipidemia Code(s): E78.5 - HYPERLIPIDEMIA, UNSPECIFIED Status: Chronic (4) Anemia Code(s): D64.9 - ANEMIA, UNSPECIFIED Status: Chronic Qualifiers: Anemia type: unspecified type Qualified Code(s): D64.9 - Anemia, unspecified (5) Closed left hip fracture Code(s): S72.002A - FRACTURE OF UNSP PART OF NECK OF LEFT FEMUR, INIT Status: Acute Qualifiers: Encounter type: subsequent encounter Fracture healing: with routine healing Qualified Code(s): S72.002D - Fracture of unspecified part of neck of left femur, subsequent encounter for closed fracture with routine healing Comment: s/p THR on Apr 26 (6) Aortic stenosis, severe Code(s): I35.0 - NONRHEUMATIC AORTIC (VALVE) STENOSIS Status: Chronic Comment: stable - Plan has diuresed well, mild low sbp, will give 250ml bolus -: dc pt back to rehab, needs to work with PT to mobilize -: continue lasix, lopressor, lipitor and eliquis -: oral iron -: d/w daughter and son in law * . Review of Systems - Medications/Allergies Allergies/Adverse Reactions: Allergies Allergy/AdvReac Type Severity Reaction Status Date / Time No Known Allergies Allergy Verified 04/23/18 16:21 Medications: Current Medications Acetaminophen (Tylenol) 1,000 mg PO Q6H PRN PRN Reason: Mild Pain (1-3) Albuterol/Ipratropium (Duoneb) 3 ml NEB [id number] [facility] Last Admin: 05/10/18 11:04 Dose: 3 ml Apixaban (Eliquis) 5 mg PO BID [facility] Stop: 06/08/18 21:01 Last Admin: 05/10/18 09:24 Dose: 5 mg Atorvastatin Calcium (Lipitor) 40 mg PO HS [facility] Last Admin: 05/09/18 20:19 Dose: 40 mg Benzonatate (Tessalon) 100 mg PO Q6H PRN PRN Reason: Cough Famotidine (Pepcid) 20 mg PO BID [facility] Last Admin: 05/10/18 09:24 Dose: 20 mg Folic Acid (Folvite) 1 mg PO DAILY [facility] Last Admin: 05/10/18 09:24 Dose: 1 mg Furosemide (Lasix) 40 mg SLOW IVP 0600,1400 [facility] Last Admin: 05/10/18 05:33 Dose: 40 mg Hydralazine HCl (Apresoline) 10 mg SLOW IVP Q4H PRN PRN Reason: SBP > 180 and HR < 70 Iron/Minerals/Multivitamins (Theragran M) 1 tab PO DAILY [facility] Last Admin: 05/10/18 09:25 Dose: 1 tab Mometasone Furoate/Formoterol Fumar (Dulera 200 Mcg/5 Mcg Inhaler) 2 puff INH BID-RT [facility] Last Admin: 05/10/18 07:22 Dose: 2 puff Nicotine (Nicoderm Patch) 14 mg TD Q24HR [facility] Last Admin: 05/09/18 20:19 Dose: 14 mg Ondansetron HCl (Zofran Odt) 4 mg PO Q6H PRN PRN Reason: Nausea/Vomiting Ondansetron HCl (Zofran) 4 mg IVP Q6H PRN PRN Reason: Nausea/Vomiting Polyethylene Glycol (Miralax) 17 gm PO DAILY [facility] Last Admin: 05/10/18 09:33 Dose: Not Given Sodium Chloride (Flush - Normal Saline) 10 ml IVF Q12HR [facility] Sodium Chloride (Flush - Normal Saline) 10 ml IVF PRN PRN PRN Reason: Saline Flush Thiamine HCl (Thiamine) 100 mg PO DAILY [facility] Last Admin: 05/10/18 09:25 Dose: 100 mg Tramadol HCl (Ultram) 50 mg PO Q4H PRN PRN Reason: Mild-Moderate Pain (1-5)
[2018-05-10 12:14] VITALS: BP 120/60; TEMP 97.8
--- NOTE | 2018-05-11 07:46 | DIS ---
DATE OF ADMISSION: 05/08/2018 DATE OF DISCHARGE: 05/10/2018 DISCHARGE DISPOSITION: Inpatient rehab. PRIMARY DISCHARGE DIAGNOSES: 1. Acute congestive heart failure exacerbation, likely flash pulmonary edema due to aortic stenosis. 2. Severe aortic stenosis, chronic atrial fibrillation, dyslipidemia, deconditioning due to left hip fracture with repair done on April 26. PROCEDURES DONE DURING HOSPITALIZATION: The patient had CT angio chest done, which showed findings of CHF. No PE was seen. H and H of 10 and 32, platelet count 325, MCV is 110. Troponin I was indeterminate, peaking up to 0.04. BNP was 1546. DISCHARGE MEDICATIONS: 1. Eliquis 5 mg p.o. twice daily for another 20 days. 2. Atorvastatin 40 mg p.o. q.h.s. 3. Folic acid 1 mg p.o. daily. 4. Lasix 40 mg p.o. daily. 5. Lopressor 25 mg twice daily. 6. Multivitamin one tablet once daily. 7. MiraLax 17 g daily. 8. Thiamine 100 mg p.o. daily. 9. Ultram p.r.n. for pain. ALLERGIES: NO KNOWN DRUG ALLERGIES. DISCHARGE PLAN: The patient to follow up with Dr. León, his Orthopedic surgeon, as advised and primary care physician in 1 week. BRIEF COURSE DURING HOSPITALIZATION: The patient was sent over from rehab for sudden onset of shortness of breath. He was in fact discharged to rehab on the same day. The patient has known history of severe aortic stenosis and likely had flash pulmonary edema from the same with acute CHF exacerbation with diastolic dysfunction. He was given a total of 3 to 4 doses of Lasix and has responded very well with diuresis. In fact, the patient dropped his systolic blood pressures to 80s and had to be given 250 mL normal saline bolus. The patient has some sinus tachycardia, likely due to diuresis. I have given complete updates to Dr. Aurora Cabral, rehab physician, prior to transfer there. The patient likely will have flare-ups due to his severe aortic stenosis, which will be addressed once he recuperates well from his current hip fracture. He is hemodynamically stable and will be shortly discharged to rehab. I have given complete updates to the family members as well. Please see a [id number] documentation for the day of discharge on [facility]. Job ID: [id number]
--- NOTE | 2018-05-13 19:57 | EKG ---
Test Reason : SOB Blood Pressure : / mmHG Vent. Rate : 108 BPM Atrial Rate : 108 BPM P-R Int : 114 ms QRS Dur : 088 ms QT Int : 318 ms P-R-T Axes : 118 035 191 degrees QTc Int : 426 ms Sinus tachycardia Nonspecific ST and T wave abnormality Abnormal ECG Confirmed by DMITRIY TORRES DO ([id number]), editor farm journal STEPHY HUSTON ([id number]) on 05/13/2018 7:57:00 PM Referred By: Confirmed By:DMITRIY TORRES DO
== END 2018-05-10 15:25 ==
LOC: ERS 20:29 → ERHOLD 22:00 → 2NO 22:29
PROVIDERS: ADMIT Hospitalist; ATTEND Hospitalist
DX: I50.31 Acute diastolic (congestive) heart failure (principal); J96.01 Acute respiratory failure with hypoxia; I48.92 Unspecified atrial flutter; I35.0 Nonrheumatic aortic (valve) stenosis; J44.9 Chronic obstructive pulmonary disease, unspecified; F17.210 Nicotine dependence, cigarettes, uncomplicated; Z79.01 Long term (current) use of anticoagulants; Z79.899 Other long term (current) drug therapy
CPT/HCPCS: 71045; 71275; 80048; 80053; 83735; 83880 ×2; 84484 ×3; 85007; 85025; 85027; 93005; 93798; 94640 ×6; 94660; 96374; 96375; 96376 ×2; 97139 ×2; 99285; G0378 ×2; 36415; J1940; J2930; J7620; Q9966